=== PATIENT | male | born 1950 | race Caucasian/White ===

== ENCOUNTER 2016-11-11 12:21 | Inpatient (IN) ==
[2016-11-11 13:10] LABS: Basophils % 0.3 %; Eosinophils % 0.4 %; Hematocrit 41.5 % (37.5-50.1); Hemoglobin 14.6 g/dL (12.9-16.9); Immature Granulocytes % 0.3 % (0-4); Immature Platelets 5.2 % (1.1-6.1); Lymphocytes # 1.8 K/mcL (0.6-4.6); Lymphocytes % 25.3 %; Mean Corpuscular HGB Conc 35.2 g/dL (31.6-35.5); Mean Corpuscular Hemoglobin 31.1 pg (28.0-33.3); Mean Corpuscular Volume 88.5 fL (83.0-100.0); Mean Platelet Volume 10.9 fL (9.4-12.4); Monocytes # 0.5 K/mcL (0.0-1.3); Monocytes % 6.4 %; Neutrophils # 4.8 K/mcL (1.6-8.9); Platelet Count 169 K/mcL (140-400); Red Blood Count 4.69 M/mcL (4.19-5.50); Red Cell Distribution Width 12.2 % (11.5-14.5); Segmented Neutrophils % 67.3 %
--- NOTE | 2016-11-11 13:14 | Emergency Department Note ---
Disposition Clinical Impression: NSTEMI (non-ST elevated myocardial infarction) Disposition: Admitted As Inpatient Condition: Fair Referrals: Milena Pederson CNP [Primary Care Provider] - Forms: ED Satisfaction Letter Chest Pain HPI - General Chief Complaint: ED Chest Pain Stated Complaint: Chest Pain Time Seen by Provider: 11/11/16 12:31 Source: patient Limitations: no limitations Vital Signs Reviewed: Yes Nursing Notes Reviewed: Yes - History of Present Illness HPI Narrative: 66-year-old male with history of coronary artery disease, triple-vessel CAB presents with intermittent chest pain for the last week. Chest pain is located on the left side radiates to left shoulder and jaw, 3/10, worsens with exertion , food, is not relieved by nitroglycerin. pain resolves with rest, passing of flatus and burping. EKG shows sinus rhythm with right bundle branch block. denies nausea, vomiting, diaphoresis, dizziness, syncope. Reports he takes aspirin, statin, plavix daily and has taken his dose this morning. Severity scale (1-10): 0 - Related Data Home Medications Medication Instructions Recorded Confirmed Cyanocobalamin (Vitamin B-12) 1,000 mcg SL DAILY 12/27/15 12/27/15 [Vitamin B-12] Atorvastatin [Lipitor] 40 mg PO HS 01/21/16 01/21/16 Clopidogrel [Plavix] 75 mg PO DAILY 01/21/16 01/21/16 Melatonin/Pyridoxine [Melatonin 3 01/21/16 mg Tablet] Potassium Chloride [K-Tab ER] 20 meq PO 01/21/16 Previous Rx's Medication Instructions Recorded Aspirin 81 mg PO DAILY tab.chew 12/28/15 Atorvastatin [Lipitor] 80 mg PO HS tablet 12/28/15 Metoprolol XL (24 HR) Succ [Toprol 25 mg PO DAILY tab.er.24h 12/28/15 Xl] Allergies Allergy/AdvReac Type Severity Reaction Status Date / Time No Known Allergies Allergy Verified 01/21/16 19:23 Review of Systems: Constitutional: Denies fever, chills HEENT: Denies blurry vision, sinus congestion Heart: Chest pain, denies palpitations. Lungs: Denies sob, cough, productive sputum Abdomen: Denies nausea vomiting, abdominal pain Extremities: denies swelling, pain Neuro: denies headache, numbness, tingling, confusion Chest Pain PMH - Past Medical History Medical history: Reports: coronary artery disease, diabetes, hyperlipidemia, hypertension, myocardial infarction Surgical history: Reports: coronary bypass (CABG) ([facility], 3 vessels, 2 weeks ago) , herniorrhaphy (left inguinal), orthopedic, other (left fifth digit ORIF) Psychiatric history: Reports: no psych history - Social History Smoking Status: Never smoker Alcohol use: Reports: occasionally Drug use: Reports: none Physical Exam Head exam: atraumatic, normocephalic Eye exam: Present: normal appearance, PERRL, EOMI ENT exam: normal exam, normal oropharynx, mucous membranes moist Neck exam: Present: normal inspection, full ROM Chest inspection: Present: normal inspection, symmetric chest wall rise Respiratory exam: Present: normal lung sounds bilaterally, respiratory distress Cardiovascular exam: Present: regular rate, normal rhythm Abdominal exam: Present: soft, Non-Tender, normal bowel sounds Extremities exam: Present: normal inspection, full ROM, normal capillary refill. Absent: tenderness, pedal edema Neurological exam: Present: alert, oriented X3 - General Limitations: no limitations General appearance: alert, in no apparent distress Course - Reevaluation(s) Reevaluation #1: 66 y/o male presenting with CP. initial troponin 0.10. EKG sinus rhythm with right bundle branch block. Normal CBC and BMP. Patient has NSTEMI will start Heparin and admit. Time: 13:42 Vital Signs Temperature 98.1 F 11/11/16 12:26 Pulse Rate 80 11/11/16 12:26 Respiratory Rate 18 11/11/16 12:26 Blood Pressure 152/99 11/11/16 12:26 O2 Sat by Pulse Oximetry 100 11/11/16 12:26 Temperature 98.1 F 11/11/16 12:26 Pulse Rate 68 11/11/16 13:29 Respiratory Rate 18 11/11/16 13:29 Blood Pressure 149/93 11/11/16 13:29 O2 Sat by Pulse Oximetry 100 11/11/16 13:29 Oxygen Delivery Oxygen Delivery Room Air Chest Pain - Lab Data Result diagrams: 11/11/16 13:04 11/11/16 13:04 Lab Results 11/11/16 11/11/16 11/11/16 Range/Units 13:04 13:04 13:04 WBC 7.1 (4.3-11.1) K/mcL RBC 4.69 (4.19-5.50) M/mcL Hgb 14.6 (12.9-16.9) g/dL Hct 41.5 (37.5-50.1) % MCV 88.5 (83.0-100.0) fL MCH 31.1 (28.0-33.3) pg MCHC 35.2 (31.6-35.5) g/dL RDW 12.2 (11.5-14.5) % Plt Count 169 (140-400) K/mcL MPV 10.9 (9.4-12.4) fL Immature Gran % 0.3 (0-4) % Seg Neutrophils % 67.3 % Lymphocytes % 25.3 % Monocytes % 6.4 % Eosinophils % 0.4 % Basophils % 0.3 % Neutrophils # 4.8 (1.6-8.9) K/mcL Lymphocytes # 1.8 (0.6-4.6) K/mcL Monocytes # 0.5 (0.0-1.3) K/mcL Eosinophils # 0.0 (0.0-0.6) K/mcL Basophils # 0.0 (0.0-0.2) K/mcL Immature Plt Fraction 5.2 (1.1-6.1) % PT 12.5 H (9.4-12.1) Seconds INR 1.2 APTT 30.3 (26.0-36.0) Seconds Sodium (136-145) mEq/L Potassium (3.5-4.5) mEq/L Chloride (98-109) mEq/L Carbon Dioxide (19-29) mEq/L BUN (8-26) mg/dL Creatinine (0.72-1.25) mg/dL Est GFR ( Amer) (> 60) Est GFR (Non-Af Amer) (> 60) BUN/Creatinine Ratio (6-26) Glucose (70-99) mg/dL Calculated Osmolality (280-300) Calcium (8.6-10.8) mg/dL Troponin I (0-0.03) ng/mL B-Natriuretic Peptide 188 H (0-100) pg/mL 11/11/16 11/11/16 Range/Units 13:04 13:04 WBC (4.3-11.1) K/mcL RBC (4.19-5.50) M/mcL Hgb (12.9-16.9) g/dL Hct (37.5-50.1) % MCV (83.0-100.0) fL MCH (28.0-33.3) pg MCHC (31.6-35.5) g/dL RDW (11.5-14.5) % Plt Count (140-400) K/mcL MPV (9.4-12.4) fL Immature Gran % (0-4) % Seg Neutrophils % % Lymphocytes % % Monocytes % % Eosinophils % % Basophils % % Neutrophils # (1.6-8.9) K/mcL Lymphocytes # (0.6-4.6) K/mcL Monocytes # (0.0-1.3) K/mcL Eosinophils # (0.0-0.6) K/mcL Basophils # (0.0-0.2) K/mcL Immature Plt Fraction (1.1-6.1) % PT (9.4-12.1) Seconds INR APTT (26.0-36.0) Seconds Sodium 138 (136-145) mEq/L Potassium 4.6 H (3.5-4.5) mEq/L Chloride 105 (98-109) mEq/L Carbon Dioxide 29 (19-29) mEq/L BUN 16 (8-26) mg/dL Creatinine 0.88 (0.72-1.25) mg/dL Est GFR ( Amer) > 60 (> 60) Est GFR (Non-Af Amer) > 60 (> 60) BUN/Creatinine Ratio 18 (6-26) Glucose 90 (70-99) mg/dL Calculated Osmolality 287 (280-300) Calcium 9.0 (8.6-10.8) mg/dL Troponin I 0.10 H* (0-0.03) ng/mL B-Natriuretic Peptide (0-100) pg/mL - EKG Data EKG results narrative: Sinus rhythm with RBBB, without ST-Twave changes. Interpretation: no acute changes
[2016-11-11 13:16] LABS: INR 1.2; Prothrombin Time 12.5 Seconds (9.4-12.1)
--- NOTE | 2016-11-11 13:17 | Emergency Department Note ---
START Narrative - START START: I examined this patient and my medical decision-making was reviewed with the VP RESEARCH/PA/Advanced Practice Nurse/Resident Physician. I agree with the documented findings, disposition and treatment plan as described except to the extent set forth below. I did feel spoke with the patient and he does have chest pain which is intermittent lasting from several seconds to several minutes at a time radiating to the left jaw and left arm. I did review the previous record and the patient did have a CABG last year. He does see Dr. Akins for cardiology. Workup in progress. I did review the patient's EKG showing normal sinus rhythm with a rate of 64 without acute ischemic change [id number]
[2016-11-11 13:19] LABS: Activated Partial Thrombo Time 30.3 Seconds (26.0-36.0)
[2016-11-11 13:22] LABS: BUN/Creatinine Ratio 18 (6-26); Blood Urea Nitrogen 16 mg/dL (8-26); Carbon Dioxide 29 mEq/L (19-29); Chloride 105 mEq/L (98-109); Glucose 90 mg/dL (70-99); Osmolality,Calculated 287 (280-300); Potassium 4.6 mEq/L (3.5-4.5); Sodium 138 mEq/L (136-145); eGFR For African Americans > 60 (> 60); eGFR For Non-African Americans > 60 (> 60)
[2016-11-11] MEDS ORDERED: Heparin 25,000 UNIT/500 ML D5W 25,000 UNIT/500 ML MLS IVC SCH (13:45)
[2016-11-11] MEDS ORDERED: *HR* Heparin 5,000 UNIT/ML VIAL IVP PRN ×2 (13:45)
[2016-11-11] MEDS ORDERED: *HR* Heparin 5,000 UNIT/ML VIAL IVP ONE (13:45)
[2016-11-11] MEDS ORDERED: Nitroglycerin 0.4 MG TAB.SUBL SL PRN (17:54)
[2016-11-11] MEDS ORDERED: Naloxone 0.4 MG/ML INJ IVP PRN (17:55)
[2016-11-11] MEDS ORDERED: Ondansetron 4 MG/2 ML VIAL IVP PRN (17:55)
--- NOTE | 2016-11-11 17:59 | Internal Med History&Physical ---
Date of Encounter: 11/11/16 Time of Encounter: 17:40 Assessment and Plan (1) Chest pain Current visit: Yes Status: Acute Patient with significant CAD hx s/p CABG last year for a multivessel disease afer e had presented with NSTEMI, peak tropinin at the time was 12+ his cath reported; LMCA free of disease, LAD, 40% proximal disease, 90% mid LAD disease, Circumflex had 100% stenosis of the mid part, and 80% stenosis of the proximal first marginal, for the RCA he had 40% stenosis of proximal portion, 75 % stenosis of the middle portion and 70% stenosis of the middle portion of the PDA, unfortunately we do not know the anatomy of his bypass surgery but he reports that one of the blockages was left alone(will need records from [facility]) due to his extensive coronary artery disease he will benefit from a cardiology evaluation as regards to repeat cath vs medical management, for now we will start him on imdur ending cardiology evaluation, we will continue to cycle troponin, telemonitor and continue his cardiac medications Qualifiers: Chest pain type: intercostal pain Qualified Code(s): R07.82 - Intercostal pain (2) HTN (hypertension) Current visit: Yes Status: Chronic Hx of HTN on antihypertensives, we will continue his prior medications with the addition of imdur per chest pain section Qualifiers: Hypertension type: essential hypertension Qualified Code(s): I10 - Essential (primary) hypertension (3) Hyperkalemia Current visit: Yes Status: Acute may be from cellular shifts, we will follow BMP (4) CAD in [place] artery Current visit: Yes Status: Chronic pls refer to the chest pain section (5) Elevated troponin Current visit: Yes Status: Acute this may be related to demand ischemia vs NSTEMI, he has no chest pain currently and the degree elevation is incomparable to his prior elevation, should his troponin continue to trend up we will consider initiating the ACS protocol (6) Hyperglycemia Current visit: Yes Status: Acute he has no prior diagnosis of DM, this hyperglycemia may be stress related, we will however check A1c Internal Medicine - H&P: HPI Chief complaint: Chest pain Admitted From: Emergency Dept Plans for Post Hospital Care: Home History of present illness: Mr. Colon is a 66 year old male with a history of multivessel coronary artery disease s/p CABG in 12/2015 at [facility] as a transfer from here. He was in his usual state of health until he went on a treadmill about a week and a half ago when used the incline option. Whilst on the treadmill he began to experience achy/ pressure like/crampy left sided chest pain, radiated to the left jaw and arm and lasted a few seconds. The pain abated after he got off the treadmill, since then he has had stuttering chest pain with same characteristic that sometimes does not respond to nitro. The pain sometimes comes on at rest, exertion worsens it. He has been getting this pain several times a week since the first episode. He denies any associated diaphoresis, shortness of breath, palpitations , nausea or vomiting, lightheadedness with any of the episodes. He came in today because he had it about 2 times; one in the morning and later this afternoon. In the ER his EKG was unchanged but his troponin level was slightly elevated at 0.1. Past Med Surg Social Fam HX - Past Medical History Medical history: coronary artery disease, hyperlipidemia, hypertension, myocardial infarction Psychiatric history: no psych history - Past Surgical History Surgical History: coronary bypass (CABG) (12/2015), herniorrhaphy, orthopedic, other - Social History Smoking Status: Never smoker Smokeless Tobacco Status: No Alcohol use: occasionally Drug use: none - Family History Brother Adopted: No Living Status: Still Living Hx Family Cardiac Disorders: Yes Hx Family Respiratory Disorders: No Hx Family Cancer: No Hx Family GI Disorders: No Hx Family Endocrine Disorder: No Hx Family Neuromuscular Disorders: No Hx Family Neurologic Disorders: No Hx Family HEENT Disorders: No Hx Family Autoimmune Disorders: No - Additional Family History Additional family history: brother was diagnosed with CAD s/p CABG in his 40's Internal Medicine - H&P: Meds Cyanocobalamin (Vitamin B-12) [Vitamin B-12] 1,000 mcg SL DAILY 12/27/15 [ History] Aspirin 81 mg PO DAILY tab.chew 12/28/15 [Rx] Atorvastatin [Lipitor] 40 mg PO HS 01/21/16 [History] Clopidogrel [Plavix] 75 mg PO DAILY 01/21/16 [History] Melatonin 3 mg PO HS 11/11/16 [History] Metoprolol [Lopressor] 25 mg PO BID 11/11/16 [History] Multivitamin [Multi-Day Vitamins] 1 tab PO DAILY 11/11/16 [History] Niacin [Niacor] 500 mg PO DAILY 11/11/16 [History] Nitroglycerin [Nitrostat] 0.4 mg SL AD PRN 11/11/16 [History] Allergies No Known Allergies Allergy (Verified 01/21/16 19:23) All Systems PM: A 10-system review of systems was performed and is negative for pertinent findings except as documented above in the HPI. - Constitutional Constitutional: no chills, no fever(s), no night sweats - EENT Eyes: no change in vision, no discharge, no pain, no photophobia Ears: no ear discharge, no ear pain, no tinnitus Nose, mouth and throat: no dysphagia, no nasal discharge, no neck pain, no sore throat - Cardiovascular Cardiovascular ROS IM: chest pain, no diaphoresis, no dyspnea, no lightheadedness, no palpitations, no syncope - Respiratory Respiratory: no cough, no dyspnea, no wheezing, no excessive phlegm production - Gastrointestinal Gastrointestinal: no abdominal pain, no diarrhea, no hematemesis, no hematochezia, no melena, no nausea, no vomiting - Genitourinary Genitourinary ROS male: no difficulty urinating, no nocturia, no urinary frequency - Musculoskeletal Musculoskeletal ROS IM: no numbness, no tingling - Integumentary Integumentary IM: no rash, no unusual bruising - Neurological Neurological ROS: no confusion, no convulsions, no focal weakness, no numbness, no tingling, no tremor(s) - Psychiatric Psychiatric: anxiety, no difficulty concentrating, no suicidal ideation - Endocrine Endocrine IM: no cold intolerance, no polyphagia - Hematologic/Lymphatic Hematologic/Lymphatic: no easy bruising - Allergic/Immunologic Allergic/Immunologic: no tongue swelling, no throat swelling, no wheezing - Constitutional Vitals: Temp Pulse Resp BP Pulse Ox 97.3 F L 64 17 133/83 98 11/11/16 16:19 11/11/16 16:19 11/11/16 16:19 11/11/16 16:19 11/11/16 16:19 PHYSICAL EXAMINATION: GENERAL: Adult male, lying in bed with no sign of distress, Alert, HEENT: NC/AT, EOMI, PERRLA, anicteric sclera, normal conjunctiva, supple, clear nares, moist mucous membranes, clear oropharynx, central uvula RESP: no chest wall tenderness with palpation, lungs are clear to auscultation bilaterally, good AE bilaterally, No crackles or wheeze CARDIO: Normal hearts sounds; S1 and 2, RRR with no murmurs, no JVD, no ankle edema GI: Soft, full, no tenderness, no organomegaly felt, normal bowel sounds heard MUSCULOSKELETAL: grossly normal movements bilaterally, no deformities noted, no calf tenderness EXTREMITIES: No clubbing, cyanosis or edema, NEUROLOGIC: CN 2-12 intact grossly. No motor/sensory deficit appreciated, PSYCHIATRY: AAO x 3. Mood is fair, exhibits appropriate judgement SKIN: no skin rash or ulcers noted Internal Med - H&P Results - Labs CBC & Chem 7: 11/11/16 13:04 11/12/16 00:40 - EKG Data -: EKG Interpreted by Myself EKG shows normal: sinus rhythm - EKG Data Prior EKG available for review: yes When compared to previous EKG: there is no significant change - Diagnostic Studies Chest x-ray Status: image reviewed by me
[2016-11-11] MEDS ORDERED: *HR* LORazepam 0.5 MG TABLET PO ONE (21:00)
[2016-11-11] MEDS: Isosorbide MONOnitrate (24 HR) 30 MG TAB.ER.24H PO SCH (21:38)
[2016-11-11] MEDS: Melatonin 3 MG TABLET PO SCH (21:38)
[2016-11-12 01:02] LABS: Hemoglobin A1C 5.6 %
[2016-11-12 01:17] LABS: BUN/Creatinine Ratio 15 (6-26); Blood Urea Nitrogen 14 mg/dL (8-26); Carbon Dioxide 30 mEq/L (19-29); Chloride 105 mEq/L (98-109); Potassium 3.9 mEq/L (3.5-4.5); Sodium 139 mEq/L (136-145)
[2016-11-12 01:18] LABS: Calcium 8.6 mg/dL (8.6-10.8); Chol/HDL Ratio 3.3 (0-4.9); Glucose 114 mg/dL (70-99); HDL Cholesterol 22 mg/dL (40-59); LDL Cholesterol,Calculated 28 mg/dL (0-99); Osmolality,Calculated 289 (280-300); Phosphorous 3.8 mg/dL (2.3-4.7); Triglycerides 114 mg/dL (< 150); eGFR For African Americans > 60 (> 60); eGFR For Non-African Americans > 60 (> 60)
[2016-11-12 01:19] LABS: Cholesterol 73 mg/dL (< 200)
[2016-11-12] MEDS: *HR* Heparin 5,000 UNIT/ML VIAL SQ SCH ×3 (06:00→21:10)
--- NOTE | 2016-11-12 08:40 | Pre-Sedation Evaluation ---
Pre-sedation evaluation - Pre-sedation checklist Date of procedure: 11/12/16 Procedure: heart cath Recent Vitals: Last Vital Signs Temp 97.7 F 11/12/16 07:18 Pulse 78 11/12/16 07:18 Resp 16 11/12/16 07:18 BP 100/64 11/12/16 07:18 Pulse Ox 96 11/12/16 07:18 H&P (including ROS) documented in medical record: Yes Previous reaction to sedatives/anesthetics: No Dietary Status: No solid food in preceding 4 hrs and no liquid in preceding 2 hrs ASA Classification *see protocol: CLASS II-Mild systemic disease Plan of Care: Pt appropriate candidate for procedure/moderate/conscious sedation , Risks/benefits of procedure/sedation discussed w/ patient/family
[2016-11-12] MEDS: Multivit/Ca/Min/Fe/FA 1 TAB TABLET PO SCH (09:43)
[2016-11-12] MEDS: Cyanocobalamin (B-12) 1,000 MCG TABLET PO SCH (09:43)
[2016-11-12] MEDS: Aspirin 81 MG TAB.CHEW PO SCH (09:43)
[2016-11-12] MEDS: Isosorbide MONOnitrate (24 HR) 30 MG TAB.ER.24H PO SCH (09:43)
[2016-11-12] MEDS: Niacin (24 HR) 500 MG TAB.ER.24H PO SCH (09:43)
--- NOTE | 2016-11-12 09:50 | Electrocardiograph Report ---
[place] [id number] Test Date: 2016-11-11 Pat Name: Tim Colon Department: 103 Room: 3B37 Gender: M [employer]: CHARLY : 1950 Requested By: Socrates Jean Order Number: [id number] Reading MD: Brandyn Sagastume MD Measurements Intervals [place] Rate: 64 P: 73 TX: 176 QRS: -19 QRSD: 116 T: 45 QT: 420 QTc: 429 Interpretive Statements SINUS RHYTHM WITH SINUS ARRHYTHMIA INCOMPLETE RIGHT BUNDLE BRANCH BLOCK Electronically Signed On 11-12-2016 9:49:11 EDT by Brandyn Sagastume MD
--- NOTE | 2016-11-12 10:07 | Cardiology Consult Note ---
Date of Encounter: 11/12/16 Time of Encounter: 08:30 Assessment and Plan (1) NSTEMI (non-ST elevated myocardial infarction) Current Visit: Yes Status: Acute Per cardiology: -Known history of CAD s/p CABG December 2015. -CHest pain on excertion for 2 weeks. -Troponins 0.1, 0.29, 0.31, 0.23. -ECG with SR. -Currently chest pain free. -On asa, plavix, heparin 5000 units subq q8 hours, beta blokcer, and statin. -LHC today. Risk and benefits of LHC explained to patient and family. Patient and family state understanding and agreeable to proceed with LHC. -Further recommendations pending LHC. (ELA) (2) Chest pain Current Visit: Yes Status: Acute Per cardiology: -Chest pain with excertion for 2 weeks. -KNown history of CAD, status post CABG 2015. -CUrrently chest pain free -On imdur. -Troponins elevated. -PLan for LHC today. (ELA) Qualifiers: Chest pain type: intercostal pain Qualified Code(s): R07.82 - Intercostal pain (3) History of coronary artery disease Current Visit: Yes Status: Chronic Per cardiology: -KNown history of CAD. -LHC 12/28/15 with 40% proximal LAD, 90% mid LAD, 100% mid circumfolex, 80% proximal OM1, 40% proximal RCA, 75% mid RCA, 70% PDA> -CABG December 2015 with 3 bypassess. Per review of 's office note, ACEVES to LAD, SVG to RCA, SVG to diagonal. -On asa, plavix, statin, beta anival, and imdur. -PLan for LHC today. (4) HTN (hypertension) Current Visit: Yes Status: Chronic Per cardiology: -Known history fo HTN. -BP on admission 150/90. Currently 100/60. -On beta anival. -WIll continue to monitor. (ELA) Qualifiers: Hypertension type: essential hypertension Qualified Code(s): I10 - Essential (primary) hypertension Discussion w patient/family: The assessment and plan as outlined above was discussed with the patient and/or family members who expressed understanding and agreement. All questions were answered. Thank you for involving us in the care of your patient. Please call with any questions. Patient seen and examined with SHANELL Colon DIscussed and reviewed with . History of Present Illness Consult date: 11/11/16 Requesting physician: Oscar Irving Consult reason: CAD, S/P CABG Chief complaint: chest pain History of present illness: Mr. Colon is a 66 year old male with a relevant past medical history of CAD, status post CABG December 2015, HTN, Hyperlipidemia, NSTEMI. Patient was admitted to [facility] with left sided chest pain for the past two weeks. Patient states when he excercises on treadmill, he has left chest pain that radiates to left shoulder and left neck. Patient also admits to chest pain when working and walking at home. Pateint describes chest pain as a dull, aching sensation. Patient states at its worse, pain would be rated a 2/10. Patient denies shortness of breath. Patient admits to increased fatigue. Patient denies current chest pain. (ELA) Past Med Surg Social Fam HX - Past Medical History Attestation: Yes The following information was validated with the patient. Source: patient, old records reviewed, obtained from family Medical history: coronary artery disease, hyperlipidemia, hypertension, myocardial infarction Psychiatric history: no psych history - Past Surgical History Surgical History: coronary bypass (CABG) (12/2015), herniorrhaphy, orthopedic, other - Social History Smoking Status: Never smoker Smokeless Tobacco Status: No Alcohol use: occasionally Drug use: none - Family History Brother Adopted: No Living Status: Still Living Hx Family Cardiac Disorders: Yes Hx Family Respiratory Disorders: No Hx Family Cancer: No Hx Family GI Disorders: No Hx Family Endocrine Disorder: No Hx Family Neuromuscular Disorders: No Hx Family Neurologic Disorders: No Hx Family HEENT Disorders: No Hx Family Autoimmune Disorders: No Medications and Allergies Cyanocobalamin (Vitamin B-12) [Vitamin B-12] 1,000 mcg SL DAILY 12/27/15 [ History] Aspirin 81 mg PO DAILY tab.chew 12/28/15 [Rx] Atorvastatin [Lipitor] 40 mg PO HS 01/21/16 [History] Clopidogrel [Plavix] 75 mg PO DAILY 01/21/16 [History] Melatonin 3 mg PO HS 11/11/16 [History] Metoprolol [Lopressor] 25 mg PO BID 11/11/16 [History] Multivitamin [Multi-Day Vitamins] 1 tab PO DAILY 11/11/16 [History] Niacin [Niacor] 500 mg PO DAILY 11/11/16 [History] Nitroglycerin [Nitrostat] 0.4 mg SL AD PRN 11/11/16 [History] Allergies No Known Allergies Allergy (Verified 01/21/16 19:23) All Systems Review: A 10-system review of systems was performed and is negative for pertinent findings except as documented above in the HPI. - Constitutional Constitutional: fatigue - Cardiovascular Cardiovascular: as per HPI, chest pain with exertion Physical Examination Vital Signs, Last 4 Hours Temp Pulse Resp BP Pulse Ox 11/12/16 07:18 97.7 F 78 16 100/64 96 General: Conversant, No Apparent Distress HEENT: Atraumatic, Normocephaly, Mucus Membranes Moist Neck: No JVD, Normal carotid pulses Cardiac: Reg Rate and Rhythm, Normal S1 and S2, No Murmur Lungs: Normal Breath Sounds, No Wheeze, Rales, Rhonchi Neuro: Alert and responsive, No focal deficits noted Abdomen: Soft, Non-Tender Skin: No rashes noted on visualized skin Musculoskeletal: No Chest Wall Tenderness Extremities: No Clubbing, No Cyanosis, No Edema, Normal Pulses Results 11/11/16 13:04 11/12/16 00:40 Lab Results Impressions Chest X-Ray 11/11/16 12:50 IMPRESSION: 1. Left base atelectasis with mild elevation of the left hemidiaphragm. Otherwise unremarkable chest radiograph. D/ / Fly Kan MD / Fly Kan MD Interpreting Provider: Fly Kan MD Active Medications Aspirin (Aspirin) 81 mg PO DAILY ADRIAN Stop: 05/14/17 09:01 Last Admin: 11/12/16 09:43 Dose: 81 mg Clopidogrel Bisulfate (Plavix) 75 mg PO DAILY ADRIAN Stop: 05/14/17 09:01 Last Admin: 11/12/16 09:43 Dose: 75 mg Cyanocobalamin (Vitamin B12) 1,000 mcg PO DAILY ADRIAN Stop: 05/14/17 09:01 Last Admin: 11/12/16 09:43 Dose: 1,000 mcg Heparin Sodium (Porcine) (Heparin) 5,000 unit SQ Q8HCO [facility] Stop: 05/14/17 06:01 Last Admin: 11/12/16 06:00 Dose: 5,000 unit Isosorbide Mononitrate (Imdur) 30 mg PO DAILY [facility] Stop: 05/13/17 18:01 Last Admin: 11/12/16 09:43 Dose: 30 mg Melatonin (Melatonin) 3 mg PO HS [facility] Stop: 05/13/17 21:01 Last Admin: 11/11/16 21:38 Dose: 3 mg Metoprolol Tartrate (Lopressor) 25 mg PO BID [facility] Stop: 05/13/17 21:01 Last Admin: 11/12/16 09:43 Dose: 25 mg Multivitamins/Calcium (Thera M Plus) 1 tab PO DAILY [facility] Stop: 05/14/17 09:01 Last Admin: 11/12/16 09:43 Dose: 1 tab Naloxone HCl (Narcan) 0.4 mg IVP Q2MIN PRN PRN Reason: Opioid Reversal Stop: 05/13/17 17:56 Niacin (Niaspan) 500 mg PO DAILY [facility] Stop: 05/14/17 09:01 Last Admin: 11/12/16 09:43 Dose: 500 mg Nitroglycerin (Nitroglycerin) 0.4 mg SL AD PRN PRN Reason: Chest Pain Stop: 05/13/17 17:55 Ondansetron HCl (Zofran) 4 mg IVP Q6HR PRN PRN Reason: Nausea And Vomiting Stop: 05/13/17 17:56 Simvastatin (Zocor) 40 mg PO HS [facility] Stop: 05/13/17 21:01 Last Admin: 11/11/16 21:38 Dose: 40 mg Laboratory Tests 11/11/16 11/11/16 11/11/16 13:04 13:04 13:04 Hgb 14.6 Creatinine Est GFR (Non-Af Amer) Troponin I 0.10 H* B-Natriuretic Peptide 188 H 11/11/16 11/12/16 11/12/16 18:33 00:40 00:40 Hgb Creatinine 0.94 Est GFR (Non-Af Amer) > 60 Troponin I 0.29 H* 0.31 H* B-Natriuretic Peptide 11/12/16 06:33 Hgb Creatinine Est GFR (Non-Af Amer) Troponin I 0.23 H* B-Natriuretic Peptide - Imaging and Cardiology Chest Xray: report reviewed Echo: report reviewed Cardiac cath: report reviewed - EKG Interpretation EKG results cardiology: personally reviewed (ECG with Sinus rhythm, HR 67.), other (Telemetry reviewed with average HR 63. Minimum HR 49 noted at 0448. PACs noted.) Consult Discharge Plan - Plan Referrals: Milena Pederson, [facility]LLER [Primary Care Provider] -
--- NOTE | 2016-11-12 11:32 | ECHO - Doppler Report ---
Echocardiogram Name: Tim Colon Date of Study: 11/11/2016 Date: 1950 Ht: 71.0 in Medical Record#: [id number] Age: 66 Wt: 195.0 lb Gender: Male BSA: 2.09 Order #: [id number] Location: [facility] Room #: 3B Reading Physician: Ozzie Akins DO, FACCamila, ROGER Supervisor [place]chard: Kimberly Puga RDCS Ordering Physician: Oscar Irving MD Primary Physician: Milena Pederson CNP Indications: WMA Impressions: LVEF 50-55%. Normal LV chamber size, wall thickness and function. Mild left ventricular diastolic dysfunction. Normal right ventricular structure and function. No evidence of pulmonary hypertension. Atypical septal motion consistent with post-operative status. No significant valvular dysfunction. Compared to prior report, no changes in LV function. Left Ventricular Wall Motion: Rest Echo Findings All wall segments showed normal motion. Findings: Study Quality * Technically sub-optimal due to poor echocardiographic windows. ECG Findings * Normal sinus rhythm. Left Ventricle * LVEF 50-55%. * Normal LV chamber size, wall thickness and function. * Mild left ventricular diastolic dysfunction. * Atypical septal motion consistent with post-operative status. Right Ventricle * Normal right ventricular structure and function. Left Atrium * Normal left atrial size. Right Atrium * Normal right atrial size. Interatrial Septum * Interatrial septum not well evaluated. Aortic Valve * Trileaflet aortic valve. * Mildly sclerotic aortic valve leaflets. * No aortic regurgitation. * No aortic stenosis. Mitral Valve * Normal mitral valve structure and function. * No mitral stenosis. * Trace mitral regurgitation. Tricuspid Valve * Normal tricuspid valve structure and function. * Trace tricuspid regurgitation. * No evidence of pulmonary hypertension. Pulmonic Valve * Normal pulmonic valve structure and function. * No pulmonic regurgitation. Aorta * Normally sized aortic root. Pericardium * The pericardium appears normal. IVC * Normal IVC dimensions and inspiratory collapse. Pulmonary Artery * Normal visualized portions of the main pulmonary artery. History Hypertension Hypercholesteremia History of CAD/PTCA Myocardial Infarction Coronary Artery Bypass Graft 12/28/2015 a Previous Echo was performed. Measurements: BP: 133/ 83 2D Normal Values RVIDd: 2.82 cm <2.7 cm IVSd: .90 cm 0.6 - 1.0 cm LVIDd: 4.49 cm 3.7 - 5.6 cm LVPWd: 1.04 cm 0.6 - 1.1 cm LVIDs: 2.81 cm 1.5 - 3.6 cm AO: 3.00 cm < 4.0 cm LA: 3.80 cm 2.0 - 4.0cm %FS: 37.40 cm >25 % LA volume: 30 Mitral Valve Peak E:.63 m/sec Peak A:.77 m/sec E/A Ratio:0.8 Peak E' Lat Best:12.8 cm/s Peak E' Med Best:6.96 cm/s E/E' Lat Ratio:4.9 E/E' Med Ratio:9 Tricuspid Valve TV Regurg Peak Grad: 24.00mmHg TV Regurg Peak Best: 2.44m/sec Updated by Ozzie Aknis DO, FACCamila, NEDA DURAN on 11/12/2016 11:28:35 AM electronically signed on 11/12/2016 11:29:00 AM with status of Final Wall Motion Tariq: 1=Normal, 2=Hypokinesis, 3=Akinesis, 4=Dyskinesis, 5=Aneurysmal, 6=Hyperkinetic, X=Not Visualized (Blank)=Missing
[2016-11-12] MEDS ORDERED: Heparin 1,000 UNITS/500 mL NS 500 ML ONE (12:10)
[2016-11-12] MEDS ORDERED: *HR* Heparin 10,000 UNIT/10 ML VIAL ONE ×2 (12:10→15:03)
[2016-11-12] MEDS ORDERED: Verapamil 5 MG/2 ML VIAL ONE (12:11)
[2016-11-12] MEDS ORDERED: Nitroglycerin 1,000 MCG/10 ML VIAL IV ONE (12:11)
[2016-11-12] MEDS ORDERED: *HR* FentaNYL (PF) 100 MCG/2 ML VIAL ONE ×2 (13:34→14:19)
[2016-11-12] MEDS ORDERED: *HR* Midazolam HCl 5 MG/5 ML VIAL IVP ONE (13:34)
[2016-11-12] MEDS ORDERED: 0.9 % Sodium Chloride 1,000 ML ONE ×2 (13:36→18:49)
[2016-11-12] MEDS ORDERED: Tirofiban 12.5 MG/250ML 12.5 MG/250 ML BAG ONE (14:30)
[2016-11-12] MEDS ORDERED: *HR* Ticagrelor 90 MG TABLET ONE (14:53)
[2016-11-12] MEDS ORDERED: Tirofiban 12.5 MG/250ML 12.5 MG/250 ML BAG IVC SCH (15:15)
--- NOTE | 2016-11-12 15:34 | Invasive Diagnostic Lab Proc ---
Name: Tim Colon Date of Study: 11/12/2016 Date: 1950 Ht: 70.0in Medical Record#: [id number] Age: 66 Wt: 196.43lb Gender: Male BSA: 2.07 Order #: [id number] BMI: 28.18 Physicians Procedure Physician: Ankit Hernandez MD, [facility] Referring MD: Referring MD: Staff Name Position Time In Tara Beebe RT (R) Scrub 01:33 PM Cresencio Whitehead RN Preschool Teacher Assistant 01:33 PM Fiona Potts RN Monitor 01:33 PM Indications Indication Non-Stemi Procedures Performed Procedure L HRT ART/GRFT ANGIO PRQ CARD MAYELA STENT W/ANGIO 1 VSL PRQ CARD MAYELA STENT W/ANGIO 1 VSL Pre-Procedure Checklist Informed consent is complete signed and on chart. H\\T\\P is on chart. ID band is on and ID verified with patient. Patient NPO for procedure The procedure was described for the patient and questions were answered. Blood Pressure: 100/64 ECG is on chart. Rhythm: NSR Plan of Care Patient will tolerate the procedure without complications. Adequate level of comfort will be maintained. Hemodynamics will remain stable Patient will recover from procedure without complications. Respiratory function will be maintained. Cardiac rhythm will remain stable. Patient temperature will be maintained. Patient and/or family have verbalized understanding of the procedure. Patient Education Chief Complaint/Reason for Test: Cardiac Cath Developmental Category: Adult (18-64 years) Developmentally Appropriate for Age: Yes Learning Barriers: None Education Needs: Procedure Education Method: Verbal Information Taught: Cardiac Cath Educational Evaluation: Able to repeat information Intravenous Access Time IV Size Location DC'd Fluid/Drip Rate Units RN 20g 1 /" Patent On Arrival Lt Arm 0.9NaCl 25 ml/hr Cresencio Whitheead RN Allergies No Known Allergies Vital Signs Time BP (mmHg) HR (bpm) O2 Sat. RR (bpm) LOC 100 / 64 78 96 % 16 5 = Fully awake and oriented or at pre-proc level 01:52 PM / % 5 = Fully awake and oriented or at pre-proc level 01:52 PM / % 5 = Fully awake and oriented or at pre-proc level 02:07 PM / % 5 = Fully awake and oriented or at pre-proc level 02:23 PM / % 5 = Fully awake and oriented or at pre-proc level 02:37 PM / % 5 = Fully awake and oriented or at pre-proc level 02:52 PM / % 5 = Fully awake and oriented or at pre-proc level 01:37 PM 115 / 61 73 95 % 20 01:42 PM 102 / 62 74 97 % 15 01:47 PM 100 / 64 75 95 % 15 01:52 PM 90 / 59 65 98 % 15 01:55 PM 101 / 55 72 97 % 13 01:57 PM 98 / 58 75 98 % 15 02:02 PM 103 / 61 74 99 % 17 02:07 PM 107 / 60 76 100 % 16 02:12 PM 99 / 61 73 100 % 16 02:17 PM 104 / 64 79 99 % 22 02:21 PM 99 / 66 90 98 % 15 02:22 PM 101 / 70 85 100 % 11 02:27 PM 114 / 64 93 100 % 21 02:32 PM 108 / 64 87 98 % 14 02:37 PM 108 / 70 86 99 % 18 02:42 PM 109 / 72 79 100 % 20 02:47 PM 110 / 72 87 100 % 14 02:52 PM 114 / 67 86 100 % 22 02:57 PM 109 / 69 83 97 % 03:02 PM 111 / 67 86 86 % 20 03:07 PM 116 / 68 91 99 % 20 03:12 PM 116 / 69 85 100 % 19 03:03 PM / % 5 = Fully awake and oriented or at pre-proc level Procedural Medications Time Medication Dose Units Method Given By 01:35 PM Oxygen 2 L/min nasal cannula Cresencio Whitehead RN 01:38 PM Versed 3 mg Intravenous [place], Cresencio JUSTICE 01:38 PM Fentanyl 50 mcg Intravenous HenthorneCresencio RN 01:47 PM Versed 1 mg Intravenous [place], Cresencio JUSTICE 01:48 PM Fentanyl 25 mcg Intravenous [place], Cresencio JUSTICE 01:50 PM Lidocaine 2% 14 ml Subcutaneous Ankit Hernandez MD, FACC 02:06 PM Heparin 2000 units Intravenous HenthorneCresencio RN 02:09 PM Heparin 2000 units Intravenous HenthorneCresencio RN 02:30 PM Aggrastat Bolus: 46 ml Intravenous HenthornCresencio guajardo RN 02:31 PM Aggrastat 12.5mg/250ml 16.5 ml Intravenous HenthornCresencio guajardo RN 03:03 PM Heparin 1000 units Intravenous HenthorneCresenico RN ASA Classification: CLASS II- Mild systemic disease (i.e. well-controlled diabetes, hypertension, asthma, cigarette smoking) Barbie Score Preprocedure Postprocedure Activity 2- Moves 4 extremities sustained head lift Activity 2- Moves 4 extremities sustained head lift Circulation 2- SBP +/= 20 points of pre-anesthetic level Circulation 2- SBP +/= 20 points of pre-anesthetic level Consciousness 2- Awake and alert oriented x 3 Consciousness 2- Awake and alert oriented x 3 O2 Saturation 2- Able to maintain O2 satruation of 92% on room air O2 Saturation 2- Able to maintain O2 satruation of 92% on room air Respiratory 2- Able to deep breathe and cough well Respiratory 2- Able to deep breathe and cough well Total Score 10 Total Score 10 Contrast Agent: Isovue Diagnostic Contrast: 225 ml Total Contrast: 225 ml Fluoro Dose: 2059 mGy Activated Clotting Time Time Seconds to Clot 02:09 PM 185 03:02 PM 245 Procedure Log Time Note Enter By 01:33 PM Pt arrived to freezer laboratory technician 2 at 13:33 tsites 01:33 PM Tara Beebe RT (R) Position: Scrub Time in: 13:33 tsites 01:33 PM Cresencio Whitehead RN Position: Preschool Teacher Assistant Time in: 13:33 tsites 01:34 PM Fiona Potts RN Position: Monitor Time in: 13:33 tsites 01:34 PM Patient charges- Angio tray pack, Navilyst 3mm J, Pulse Oximetry and ACIST tubing and transducer tsites 01:34 PM Case Delayed No tsites :34 PM Hair removed from procedure site in holding area using clippers. Bilateral groin prepped with Chloraprep by Tara Beebe (R), safety strap applied then patient was draped. Skin intact. tsites 01:34 PM Physician arrived 13:34 tsites 01:34 PM Meet and greet completed tsites 01:34 PM Sign in performed according to hospital policy. tsites 01:34 PM Procedure start 13:34 tsites 01:35 PM Time: 13:35 Oxygen on at 2 L/min per nasal cannula by Cresencio Whitehead RN tsites 01:36 PM CathStat 01:36 PM Vitals capture started with the following parameters, Patient=Adult, Interval=5 min, Initial Qjhjaqhs=736 mmHg, Deflation Rate=5 mmHg, Cuff placed on Left Arm 01:37 PM HR=73 bpm, ALHN=925/61 mmhg, SpO2=95.0 %, Resp=20 B/min 01:38 PM Time: 13:38 Versed 3 mg Intravenous Given by Cresencio Whitehead RN tsites 01:38 PM Time: 13:38 Fentanyl 50 mcg Intravenous Given by Cresencio Whitehead RN tsites 01:42 PM HR=74 bpm, NKBW=309/62 mmhg, SpO2=97.0 %, Resp=15 B/min 01:43 PM Recorded ECG: HR=73 Condition=Condition 1 01:47 PM HR=75 bpm, CXAN=148/64 mmhg, SpO2=95.0 %, Resp=15 B/min, Comment=SR 01:47 PM Pressure channel 1 zeroed. 01:47 PM Time out performed according to hospital policy tsites 01:47 PM Time: 13:47 Versed 1 mg Intravenous Given by Cresencio Whitehead RN tsites 01:48 PM Time: 13:48 Fentanyl 25 mcg Intravenous Given by Cresencio Whitehead RN tsites 01:49 PM Recorded Pressure: Ao, HR=59, Condition=Condition 1 (Aorta) Ao 77/61/69 01:50 PM Time: 13:50 14 ml Lidocaine 2% to right groin Subcutaneous Given by Ankit Hernandez MD, [facility] tsites 01:50 PM Access obtained by percutaneous puncture. 5Fr 10cm Terumo [place] sheath placed in right Femoral artery. [id number] tsites 01:50 PM 5Fr FR 4 catheter inserted over the wire [facility] tsites 01:51 PM RCA angiography performed in multiple views. tsites 01:52 PM HR=65 bpm, NIBP=90/59 mmhg, SpO2=98.0 %, Resp=15 B/min, Comment=SR 01:52 PM Catheter removed tsites 01:52 PM Time: 13:52 Patient comfortable and pain free: Yes tsites 01:52 PM Time: 13:52LOC: 5 = Fully awake and oriented or at pre-proc level tsites 01:53 PM Lesion found in Proximal RCA. Pre Stenosis: 80 Pre ANITA Flow: 3: Complete and Brisk Flow/Perfusion tsites 01:54 PM 5Fr IM catheter inserted over the wire [id number] tsites 01:54 PM Recorded Pressure: Ao, HR=70, Condition=Condition 1 (Aorta) Ao 78/63/70 01:54 PM Left KAROL to the mid LAD angio performed in multiple views. tsites 01:54 PM NIBP STAT measurement started. 01:55 PM HR=72 bpm, FVES=728/55 mmhg, SpO2=97 %, Resp=13 B/min 01:55 PM Catheter removed tsites 01:55 PM 5Fr FL 4 catheter inserted over the wire DN tsites 01:56 PM Recorded Pressure: Ao, HR=63, Condition=Condition 1 (Aorta) Ao 84/64/74 01:56 PM LCA angiography performed in multiple views. tsites 01:57 PM HR=75 bpm, NIBP=98/58 mmhg, SpO2=98.0 %, Resp=15 B/min, Comment=SR 01:57 PM Catheter removed tsites 01:57 PM Coronary Dominance: right tsites 01:57 PM 5Fr Pigtail catheter inserted over the wire [facility] tsites 01:57 PM Catheter selectively placed in left ventricle tsites 01:58 PM Recorded Pressure: LV, HR=79, Condition=Condition 1 (Left Ventricle) LV 106/0/12 01:58 PM Bolus angiogram of left Ventricle complete: 10 ml/sec for a total of 20 mls tsites 01:58 PM Recorded Pressure: LV, Ao, HR=74, Condition=Condition 1 (Left Ventricle) LV 106/2/17, (Aorta) Ao 96/63/78 01:59 PM Bolus angiogram of Aortic root complete: 10 ml/sec for a total of 20 mls tsites 02:01 PM Catheter removed tsites 02:01 PM 5Fr MPA catheter inserted over the wire [id number] tsites 02:01 PM Lesion found in Mid LAD. Pre Stenosis: 95 Pre ANITA Flow: 3: Complete and Brisk Flow/Perfusion tsites 02:01 PM Lesion found in Mid Circumflex. Pre Stenosis: 100 Pre ANITA Flow: 0: No Flow/No perfusion tsites 02:01 PM Circumflex, Obtuse Marginal, Left Posterior Descending, and Left Posterolateral Coronary Arteries with 100 % stenosis. tsites 02:02 PM HR=74 bpm, RZPW=403/61 mmhg, SpO2=99.0 %, Resp=17 B/min, Comment=SR 02:02 PM Lesion found in Mid RCA. Pre Stenosis: 99 Pre ANITA Flow: 3: Complete and Brisk Flow/Perfusion tsites 02:03 PM Right Coronary, Right Posterior Descending Arteries with Right Posterolateral and Acute Marginal branches with 99 % stenosis. tsites 02:05 PM Catheter removed tsites 02:05 PM Sheath exchanged for a 6 Fr 11 cm Cordis Joya sheath [id number] tsites 02:05 PM 6Fr JR4 Runway guide catheter was used to cannulate the PCI vessel successfully. reused? No tsites 02:06 PM Time: 14:06 Heparin 2000 units Intravenous Given by Cresencio Whitehead RN tsites 02:07 PM HR=76 bpm, DONA=508/60 mmhg, MpA3=660.0 %, Resp=16 B/min, Comment=SR 02:07 PM Time: 13:52 Patient comfortable and pain free: Yes tsites 02:07 PM Time: 13:52LOC: 5 = Fully awake and oriented or at pre-proc level tsites 02:07 PM .014 PT Graphix 180cm guide wire across target lesion- successful. reused? No tsites 02:09 PM 2.5 mm x 20 mm Emerge Monorail balloon across target lesion- successful. reused? No tsites 02:09 PM At 14:09 the ACT was 185 seconds. tsites 02:09 PM Time: 14:09 Heparin 2000 units Intravenous Given by Cresencio Whitehead RN tsites 02:12 PM HR=73 bpm, NIBP=99/61 mmhg, NdW4=530.0 %, Resp=16 B/min, Comment=SR 02:12 PM Balloon catheter removed intact. tsites 02:12 PM Guide wire removed intact. tsites 02:14 PM .014 Fielder 300cm guide wire across target lesion- successful. reused? No tsites 02:15 PM Inflation device was opened. tsites 02:15 PM 1.2 mm x 20 mm Emerge Monorail balloon across target lesion- successful. reused? No tsites 02:16 PM Recorded Pressure: Ao, HR=78, Condition=Condition 1 (Aorta) Ao 86/67/77 02:17 PM HR=79 bpm, MAXD=667/64 mmhg, SpO2=99 %, Resp=22 B/min 02:17 PM Recorded Pressure: Ao, HR=84, Condition=Condition 1 (Aorta) Ao 91/71/81 02:20 PM NIBP STAT measurement started. 02:21 PM Balloon catheter removed intact. tsites 02:21 PM HR=90 bpm, NIBP=99/66 mmhg, SpO2=98.0 %, Resp=15 B/min 02:22 PM HR=85 bpm, IMNQ=080/70 mmhg, FjI0=825 %, Resp=11 B/min 02:22 PM .014 PT Graphix 300cm guide wire across target lesion- successful. reused? No tsites 02:23 PM Time: 14:07LOC: 5 = Fully awake and oriented or at pre-proc level tsites 02:23 PM Time: 14:07 Patient comfortable and pain free: Yes tsites 02:24 PM balloon reinserted, 1.2 x 20 tsites 02:24 PM Balloon inflated @ 18 luc for 12 seconds tsites 02:24 PM Balloon inflated @ 18 luc for 8 seconds tsites 02:25 PM Balloon catheter removed intact. tsites 02:25 PM Recorded Pressure: Ao, HR=86, Condition=Condition 1 (Aorta) Ao 90/61/75 02:27 PM 2.5 x 20 balloon reinserted tsites 02:27 PM HR=93 bpm, OFPG=258/64 mmhg, KkE1=367 %, Resp=21 B/min 02:27 PM Recorded Pressure: Ao, HR=91, Condition=Condition 1 (Aorta) Ao 65/47/56 02:28 PM Balloon inflated @ 14 luc for 11 seconds tsites 02:28 PM Recorded Pressure: Ao, HR=90, Condition=Condition 1 (Aorta) Ao 78/57/67 02:28 PM Balloon inflated @ 14 luc for 8 seconds tsites 02:29 PM Balloon inflated @ 14 luc for 9 seconds tsites 02:29 PM Balloon catheter removed intact. tsites 02:30 PM Fielder wire cut per Dr. Hernandez tsites 02:31 PM Time: 14:30 Aggrastat Bolus: 46 ml Intravenous Given by Cresencio Whitehead RN Silveira pump tsites 02:31 PM Time: 14:31 Aggrastat 12.5mg/250ml 16.5 ml Intravenous Given by Cresencio Whitehead RN Silveira pump tsites 02:31 PM 4.0mm x 38mm Synergy drug-eluting stent across target lesion- successful Lot #[id number] tsites 02:32 PM HR=87 bpm, MHFZ=162/64 mmhg, SpO2=98.0 %, Resp=14 B/min, Comment=SR 02:33 PM Stent deployed @ 16 luc for 120 seconds tsites 02:35 PM Stent delivery system removed intact. tsites 02:37 PM HR=86 bpm, PNQJ=821/70 mmhg, SpO2=99.0 %, Resp=18 B/min, Comment=SR 02:37 PM 4.0mm x 20mm Synergy drug-eluting stent across target lesion- successful Lot #[id number] tsites 02:37 PM Time: 14:23LOC: 5 = Fully awake and oriented or at pre-proc level tsites 02:37 PM Time: 14:23 Patient comfortable and pain free: Yes tsites 02:40 PM Stent deployed @ 12 luc for 20 seconds tsites 02:41 PM Stent delivery system removed intact. tsites 02:42 PM HR=79 bpm, BLUP=674/72 mmhg, GlB7=794.0 %, Resp=20 B/min, Comment=SR 02:43 PM 4.5 mm x 15mm NC Emerge balloon across target lesion- successful. reused? No tsites 02:45 PM Balloon catheter removed intact. tsites 02:45 PM .014 Prowater 180cm guide wire across target lesion- successful. reused? No tsites 02:46 PM 4.5x15 reinserted tsites 02:47 PM HR=87 bpm, UMKP=239/72 mmhg, GrM4=434.0 %, Resp=14 B/min, Comment=SR 02:47 PM Balloon catheter removed intact. tsites 02:48 PM 4.5 mm x 12mm NC Trek Rx balloon across target lesion- successful. reused? No tsites 02:51 PM Balloon inflated @ 16 luc for 13 seconds tsites 02:52 PM Balloon inflated @ 12 luc for 11 seconds tsites 02:52 PM HR=86 bpm, SZIJ=743/67 mmhg, NeJ8=233.0 %, Resp=22 B/min, Comment=SR 02:52 PM Time: 14:37 Patient comfortable and pain free: Yes tsites 02:52 PM Time: 14:37LOC: 5 = Fully awake and oriented or at pre-proc level tsites 02:53 PM Balloon catheter removed intact. tsites 02:53 PM Guide wire removed intact, Prowater tsites 02:54 PM Guide wire removed intact, PT graphix tsites 02:54 PM Guide catheter removed intact. tsites 02:55 PM 6Fr EBU 3.5 [place] Bright-Tip guide catheter was used to cannulate the PCI vessel successfully. reused? No tsites 02:57 PM HR=83 bpm, GWMH=285/69 mmhg, SpO2=97.0 %, Comment=SR 03:00 PM 2.0 mm x 12 mm Emerge Monorail balloon across target lesion- successful. reused? No tsites 03:01 PM Balloon inflated @ 14 luc for 20 seconds tsites 03:02 PM HR=86 bpm, NFTY=220/67 mmhg, SpO2=86.0 %, Resp=20 B/min, Comment=SR 03:02 PM At 15:02 the ACT was 245 seconds. tsites 03:03 PM 2.25mm x 20mm Synergy drug-eluting stent across target lesion- successful Lot #[id number] tsites 03:03 PM Time: 14:52 Patient comfortable and pain free: Yes tsites 03:03 PM Time: 14:52LOC: 5 = Fully awake and oriented or at pre-proc level tsites 03:03 PM Time: 15:03 Heparin 1000 units Intravenous Given by Cresencio Whitehead RN tsites 03:06 PM Stent deployed @ 14 luc for 22 seconds tsites 03:07 PM HR=91 bpm, CXUB=143/68 mmhg, SpO2=99.0 %, Resp=20 B/min, Comment=SR 03:08 PM Stent delivery system removed intact. tsites 03:08 PM Guide wire removed intact. tsites 03:08 PM Guide catheter removed intact. tsites 03:09 PM Bolus angiogram of right Femoral complete: 2 ml/sec for a total of 4 mls tsites 03:10 PM Sign out completed: Radiation Dose 2059.44 mGy Fluoro Time: 25.3 Isovue 370 - 200ml contrast 225 ml given by Ankit Hernandez MD, [facility]. Complications: NoneCardiac Rehab Consult needed: YesConfirmed administered medications: Yes tsites 03:11 PM Lesion found in 1st Diagonal. Pre Stenosis: 100 Pre ANITA Flow: tsites 03:11 PM Mid/Distal Left Anterior Descending Coronary Artery and diagonal branches with 100% stenosis. tsites 03:12 PM HR=85 bpm, TJRY=557/69 mmhg, TcW1=218.0 %, Resp=19 B/min, Comment=SR 03:15 PM Procedure completed at 15:10 tsites 03:16 PM Isovue 370 - 200ml,1 Bottle(s) used. tsites 03:16 PM Sheath left in place to be pulled on floor/holding area tsites 03:16 PM Post ECG NSR tsites 03:16 PM Post Blood Pressure 116/69 tsites 03:16 PM 15:16 Post Pulses Bilateral DP \\T\\ PT 1+ tsites 03:18 PM Information taught PCI and Cardiac Cath tsites 03:18 PM Education needs Plan of Care and Responsibilities of Patient in Care tsites 03:18 PM Learning barriers :None tsites 03:18 PM Education Methods Verbal tsites 03:18 PM Education evaluation Able to repeat information tsites 03:18 PM Site status No bleeding/hematoma - Rt Groin as reported by Tara Beebe RT (R) at 15:18 tsites 03:18 PM Opsite applied tsites 03:18 PM Plavix, Effient or Brilinta given Yes tsites 03:18 PM Time: 15:03LOC: 5 = Fully awake and oriented or at pre-proc level tsites 03:18 PM Time: 15:03 Patient comfortable and pain free: Yes tsites 03:21 PM Report given to Valerie JUSTICE Pt taken to 2N Room #8. 15:21 tsites 03:22 PM Patient out of room: 15:22 tsites 03:22 PM Family placed in sent to room, consult full. tsites 03:22 PM Complications: None tsites Complications Complication None Hemodynamics Pressures Site Systolic/A Wave Diastolic/V Wave Mean AO 77 61 69 AO 78 63 70 AO 84 64 74 LV 106 0 12 LV 106 2 17 AO 96 63 78 AO 86 67 77 AO 91 71 81 AO 90 61 75 AO 65 47 56 AO 78 57 67 Post Procedure Information Blood Pressure: 116/69 mmHg Rhythm: NSR Post procedural instructions were given Site Checks Time Location Status Staff Sheath In? Note 03:18 PM Rt Groin No bleeding/hematoma Tara Beebe RT (R) Pulses Time Site Pre-Procedure Post-Procedure Note Bilateral DP 2+ Bilateral PT 1+ 3:16:00 PM Bilateral DP \\T\\ PT 1+ Updated by Jesusita Irvin RT (R) on 11/12/2016 3:30:08 PM Jesusita Irvin RT electronically signed on 11/12/2016 3:30:58 PM with status of Final
[2016-11-12] MEDS: *HR* OxyCODONE/APAP 5/325 TABLET PO PRN (17:12)
--- NOTE | 2016-11-12 17:15 | Internal Med Progress Note ---
Date of Encounter: 11/12/16 Time of Encounter: 10:00 - Assessment and plan (1) NSTEMI (non-ST elevated myocardial infarction) Current Visit: Yes Status: Acute Assessment and plan: chest pain with elevated troponn. Patient has a history of CAD S/P CABG. Cardio consult appreciated. Patient had LHC today. (2) HTN (hypertension) Current Visit: Yes Status: Chronic Assessment and plan: continue home medication Qualifiers: Hypertension type: essential hypertension Qualified Code(s): I10 - Essential (primary) hypertension (3) Hyperkalemia Current Visit: Yes Status: Acute Assessment and plan: improved (4) Chest pain Current Visit: Yes Status: Acute Assessment and plan: consider CAD and NSTEMI. Had LHC today. Qualifiers: Chest pain type: intercostal pain Qualified Code(s): R07.82 - Intercostal pain (5) DVT prophylaxis Current Visit: Yes Status: Acute Assessment and plan: heparin subcutaneosly. - Time Spent With Patient 25 - 35 minutes - Subjective Interval history: patient is a 66-year-old male admitted for chest pain. physical past medical hisory is significant for CAD S/P CABG, hyperten , hyperlipidemia Patient was seen and examind. He is pain free when I saw him. Vitals stable. However, elevated troponin suggest NSTEMI. Cardio consult appreciated. Pt had C today. - Constitutional Vitals: Temp Pulse Resp BP Pulse Ox 98.2 F 76 16 108/73 95 11/12/16 15:42 11/12/16 15:42 11/12/16 15:42 11/12/16 15:42 11/12/16 11:31 General appearance: Present: A&O X 3, no acute distress, answers questions appropriately - Head Head exam: Present: atraumatic, normocephalic - Eye Eye exam: Present: PERRL, conjuntiva pink, sclera anicteric Pupils: Present: PERRL - Neck Neck exam general surgery: Present: supple, trachea midline. Absent: lymphadenopathy - Respiratory Respiratory exam: Present: CTAB. Absent: accessory muscle use, rales, rhonchi, wheezes - Cardiovascular Cardiovascular exam: Present: RRR, +S1, +S2. Absent: diastolic murmur, gallop, rubs, systolic murmur - GI/Abdominal GI/Abdominal exam: Present: normal bowel sounds, soft, no peritoneal signs. Absent: distended, tenderness - Extremities Exam Extremities exam: Present: warm, radial pulses palpable and symetrical. Absent : calf tenderness, cyanotic, pedal edema - Neurological Exam Neurological exam: Present: CN II-XII intact, oriented X3, no focal deficits. Absent: pronater drift, facial droop, speech deficit - Skin Skin exam: Present: dry, intact Internal Medicine: Result - Labs CBC & Chem 7: 11/11/16 13:04 11/12/16 00:40 - ABG Interpretation ABG results: PT/INR, D-dimer PT 12.5 Seconds (9.4-12.1) H 11/11/16 13:04 Consult Discharge Plan - Plan Referrals: Milena Pederson CNP [Primary Care Provider] - 11/22/16 4:00 pm Robin Hagan CNP [Advanced Practice Nurse] - (Cardiology will call patient at home with appointment due to them making their own appoinments)
--- NOTE | 2016-11-12 18:32 | Invasive Diagnostic Lab ---
Name: Tim Colon Date of Study: 11/12/2016 Date: 1950 Ht: 177.8 cm /70.0 in Medical Record#: [id number] Age: 66 Wt: 89.1 kg / 196.43 lb Account/Order#: [id number] Gender: Male BSA: 2.07 Order #: [id number] Fluoro Dose: 2059 mGy BMI: 28.18 Procedure Physician: Ankit Hernandez MD, [facility] Referring MD: Referring MD: Procedures Performed: LEFT HEART CATH W/ GRAFTS Stent w/ PTCA Single Major Vessel Stent w/ PTCA Single Major Vessel Aortic Root Injection Iliofemoral angiography with cath Indications: Non-Stemi Impressions: There is severe three vessel coronary artery disease. The left ventricle is normal and has normal contractility EF 55% Patient had successful PTCA/Drug-Eluting Stent placement in the mid RCA. Patient had successful PTCA/Drug-Eluting Stent placement in the proximal RCA Patient had successful PTCA/Drug-Eluting Stent placement in the 1st Diagonal. S/P CABG 1 of 3 patent bypass grafts. Recommendations: Optimal medical therapy of patient's disease. Aggressive risk factor modification. History/Risk Factors: Hypertension Dyslipidemia Previous CABG Procedure Access obtained in the right Femoral artery by percutaneous puncture Patient had successful PTCA/Drug-Eluting Stent placement in the proximal RCA, mid RCA, and 1st Diag. Complications: None Contrast: Isovue 225ml Hemodynamics: Pressures Site Systolic/ A Wave Diastolic/ V Wave End Diastolic/ Mean HR AO 77 61 69 59 AO 78 63 70 70 AO 84 64 74 63 LV 106 0 12 79 LV 106 2 17 73 AO 96 63 78 78 AO 86 67 77 78 AO 91 71 81 84 AO 90 61 75 86 AO 65 47 56 91 AO 78 57 67 90 LV Ventriculography Ejection Method: LV Gram Ejection Fraction: 55% Wall Motion: KELLER Anterobasal Normal Anterolateral Normal Apical: Normal Inferoapical Normal Inferobasal Normal Coronary Dominance: right Lesion Findings/Interventions * Left Main Coronary Artery The LMCA is angiographically free of disease. * Left Anterior Descending There is a 95% stenosis in the Mid LAD. The lesion has a ANITA flow of 3. Proximal LAD has mild disease. There is a 20 mm long, 90% stenosis in the 1st Diagonal. The lesion has a ANITA flow of 0 and has no thrombus present. An intervention was performed on the 1st Diagonal with a final stenosis of 0%. There were no lesion complications. The final ANITA flow was 3. * Circumflex There is a 100% stenosis in the Mid Circumflex. The lesion has a ANITA flow of 0 and has collaterals which feed from right to left. Known from before. * Right Coronary Artery There is a 20 mm long, 80% stenosis in the Proximal RCA. The lesion has a ANITA flow of 3, has no thrombus present, and has collaterals which feed from left to right. An intervention was performed on the Proximal RCA with a final stenosis of 0%. There were no lesion complications. The final ANITA flow was 3. There is a 38 mm long, 99% stenosis in the Mid RCA. The lesion has a ANITA flow of 2 and has no thrombus present. An intervention was performed on the Mid RCA with a final stenosis of 0%. There were no lesion complications. The final ANITA flow was 3. Mild disease in the R PDA. Brief period of inferior ST elevation during intervention. Additional Findings: Grafts * The left internal mammary graft to the Mid LAD is patent. ANITA flow is 3. * The saphenous vein graft to the PDA is occluded. * The saphenous vein graft to the 1st Diagonal is occluded. Visualized portion of iliofemoral artery without severe disease. Aortic root injection shows it is not severely dilated and no grafts present. Interventional Device(s) Vessel Segment Type Name Diameter (mm) Length (mm) Proximal RCA Drug Eluting Stent Synergy 4 20 Proximal RCA Balloon NC Trek Rx 4.5 12 Proximal RCA Balloon Emerge Monorail OTW 1.2 20 Mid RCA Drug Eluting Stent Synergy 4 38 Mid RCA Balloon NC Trek RX 4.5 12 Mid RCA Balloon Emerge Monorail 1.2 20 1st Diagonal Balloon Emerge Monorail 2 12 1st Diagonal Drug Eluting Stent Synergy 2.25 20 Updated by RT Umang (R) on 11/12/2016 3:28:52 PM Ankit Hernandez MD, FACC electronically signed on 11/12/2016 6:28:29 PM with status of Final
[2016-11-12] MEDS ORDERED: *HR* Atropine Sulfate 1 MG/10 ML SYRINGE ONE (18:46)
[2016-11-12] MEDS: *HR* Ticagrelor 90 MG TABLET PO SCH (21:10)
[2016-11-12] MEDS: Melatonin 3 MG TABLET PO SCH (21:10)
[2016-11-12] MEDS ORDERED: *HR* LORazepam 0.5 MG TABLET PO ONE (22:13)
[2016-11-13 03:52] LABS: Basophils % 0.3 %; Eosinophils # 0.1 K/mcL (0.0-0.6); Eosinophils % 0.7 %; Hematocrit 39.8 % (37.5-50.1); Hemoglobin 13.5 g/dL (12.9-16.9); Immature Granulocytes % 0.3 % (0-4); Lymphocytes # 1.7 K/mcL (0.6-4.6); Lymphocytes % 15.6 %; Mean Corpuscular HGB Conc 33.9 g/dL (31.6-35.5); Mean Corpuscular Hemoglobin 30.5 pg (28.0-33.3); Mean Platelet Volume 11.4 fL (9.4-12.4); Monocytes # 0.8 K/mcL (0.0-1.3); Neutrophils # 7.9 K/mcL (1.6-8.9); Platelet Count 156 K/mcL (140-400); Red Blood Count 4.42 M/mcL (4.19-5.50); Red Cell Distribution Width 12.5 % (11.5-14.5); Segmented Neutrophils % 75.1 %
[2016-11-13 04:07] LABS: BUN/Creatinine Ratio 22 (6-26); Blood Urea Nitrogen 19 mg/dL (8-26); Calcium 8.9 mg/dL (8.6-10.8); Carbon Dioxide 26 mEq/L (19-29); Chloride 107 mEq/L (98-109); Glucose 97 mg/dL (70-99); Osmolality,Calculated 288 (280-300); Potassium 4.3 mEq/L (3.5-4.5); Sodium 138 mEq/L (136-145); eGFR For African Americans > 60 (> 60); eGFR For Non-African Americans > 60 (> 60)
[2016-11-13] MEDS ORDERED: Benzonatate 100 MG CAPSULE PO ONE (04:28)
[2016-11-13] MEDS: *HR* Heparin 5,000 UNIT/ML VIAL SQ SCH (04:57)
[2016-11-13] MEDS: *HR* OxyCODONE/APAP 5/325 TABLET PO PRN (05:03)
[2016-11-13 08:18] VITALS: BP 119/84
[2016-11-13] MEDS: Aspirin 81 MG TAB.CHEW PO SCH (09:01)
[2016-11-13] MEDS: *HR* Ticagrelor 90 MG TABLET PO SCH (09:02)
[2016-11-13] MEDS: Isosorbide MONOnitrate (24 HR) 30 MG TAB.ER.24H PO SCH (09:03)
[2016-11-13] MEDS: Niacin (24 HR) 500 MG TAB.ER.24H PO SCH (09:06)
[2016-11-13] MEDS: Cyanocobalamin (B-12) 1,000 MCG TABLET PO SCH (09:07)
[2016-11-13] MEDS: Multivit/Ca/Min/Fe/FA 1 TAB TABLET PO SCH (09:07)
--- NOTE | 2016-11-13 09:35 | Cardiology Progress Note ---
Date of Encounter: 11/13/16 Time of Encounter: 09:33 Assessment and Plan (1) NSTEMI (non-ST elevated myocardial infarction) Current Visit: Yes Status: Acute Per cardiology: Troponins 0.1, 0.29, 0.31, 0.23. S/p C yesterday with severe 3 vessel CAD. Successful PTCA/MAYELA to mid RCA, prox RCA, 1st diag. 1/3 patent bypass grafts. ACEVES-mid LAD patent, SVG-PDA occluded, SVG-1st diag occluded. Pt reports one episode of chest pain last night, brief, left sided, relieved with Percocet, no recurrence. Currently chest pain free. DAPT (ASA and Brilinta) uninterrupted x 1 year. Pt verbalizes understanding. Continue BB, Statin. Increase imdur to 60mg daily. Right femoral access site healing well. No bleeding, hematoma or ecchymosis noted. Follow-up in 1 week with cardiology--will coordinate. Cardiology signing off. Reconsult PRN. (2) HTN (hypertension) Current Visit: Yes Status: Chronic Per cardiology: Controlled on current meds. Qualifiers: Hypertension type: essential hypertension Qualified Code(s): I10 - Essential (primary) hypertension (3) History of coronary artery disease Current Visit: Yes Status: Chronic Per cardiology: C details above. ASA, Brilinta, BB, Statin, Nitrates. Discussion w patient/family: The assessment and plan as outlined above was discussed with the patient and/or family members who expressed understanding and agreement. All questions were answered. Thank you for involving us in the care of your patient. Please call with any questions. I will discuss all the above with Dr. Sagastume and make changes as necessary. Subjective Principal diagnosis: NSTEMI Interval history: S/p [facility] yesterday with severe 3 vessel CAD. Successful PTCA/MAYELA to mid RCA, prox RCA, 1st diag. 1/3 patent bypass grafts. ACEVES-mid LAD patent, SVG-PDA occluded, SVG-1st diag occluded. Pt reports one episode of chest pain last night , brief, left sided, relieved with Percocet, no recurrence. Currently chest pain free. Objective Vital Signs, Last 4 Hours Temp Pulse Resp BP Pulse Ox 11/13/16 08:16 97.6 F 81 18 119/84 98 11/13/16 08:00 74 Vital Signs Temp Pulse Pulse Resp BP Pulse Ox 11/13/16 08:16 97.6 F 81 18 119/84 98 11/13/16 08:00 74 11/13/16 04:17 67 11/13/16 03:59 98.0 F 67 16 112/78 96 11/13/16 00:20 97.8 F 55 16 93/55 95 11/12/16 23:00 55 95/63 11/12/16 22:00 51 95/65 11/12/16 21:00 54 107/68 11/12/16 20:30 59 104/70 11/12/16 20:00 58 104/71 11/12/16 19:45 59 109/72 11/12/16 19:42 97.5 F L 61 18 109/72 97 11/12/16 19:35 85 97 11/12/16 19:30 58 107/77 11/12/16 19:15 81 115/88 11/12/16 19:10 59 121/86 11/12/16 19:05 81 118/82 11/12/16 19:00 79 111/84 11/12/16 18:55 82 82 114/73 11/12/16 16:55 74 11/12/16 16:00 77 16 99/77 97 11/12/16 15:55 73 102/72 11/12/16 15:45 76 105/75 11/12/16 15:42 98.2 F 76 16 108/73 11/12/16 15:40 77 16 108/73 97 11/12/16 11:31 97.8 F 58 14 104/64 95 Intake and Output 11/12/16 11/13/16 11/13/16 23:59 07:59 15:59 Intake Total 490 / 490 Balance 490 / 490 Intake: IV Fluids 250 / 250 Aggrastat 12.5 MG/250 ML 250 / 250 12.5 mg In 250 ml @ 0.15 MCG/KG/MIN 15.946 mls/hr IVC .[id number] [facility] Rx#: [id number] Oral 240 / 240 Other: Weight 91.2 kg Patient Weight 11/13/16 23:59 Weight 91.2 kg General: Conversant, No Apparent Distress HEENT: Atraumatic, Normocephaly, Mucus Membranes Moist Neck: No JVD, Normal carotid pulses Cardiac: Reg Rate and Rhythm, Normal S1 and S2, No Murmur Lungs: Normal Breath Sounds, No Wheeze, Rales, Rhonchi Neuro: Alert and responsive, No focal deficits noted Abdomen: Soft, Non-Tender Skin: Other (left femoral access site healing well. No bleeding, hematoma, or ecchymosis noted. ) Results 11/13/16 03:16 11/13/16 03:16 Lab Results 11/13/16 11/13/16 03:16 03:16 WBC 10.6 Hgb 13.5 Hct 39.8 Plt Count 156 Sodium 138 Potassium 4.3 Chloride 107 Carbon Dioxide 26 BUN 19 Creatinine 0.86 Glucose 97 Calcium 8.9 Short CBC 11/13/16 Range/Units 03:16 WBC 10.6 (4.3-11.1) K/mcL Hgb 13.5 (12.9-16.9) g/dL Hct 39.8 (37.5-50.1) % Plt Count 156 (140-400) K/mcL Neutrophils # 7.9 (1.6-8.9) K/mcL BMP 11/13/16 Range/Units 03:16 Sodium 138 (136-145) mEq/L Potassium 4.3 (3.5-4.5) mEq/L Chloride 107 (98-109) mEq/L Carbon Dioxide 26 (19-29) mEq/L BUN 19 (8-26) mg/dL Creatinine 0.86 (0.72-1.25) mg/dL Glucose 97 (70-99) mg/dL Calcium 8.9 (8.6-10.8) mg/dL Cardiac Enzymes 11/12/16 Range/Units 12:49 Troponin I 0.20 H* (0-0.03) ng/mL Active Medications Aspirin (Aspirin) 81 mg PO DAILY ADRIAN Stop: 05/14/17 09:01 Last Admin: 11/13/16 09:01 Dose: 81 mg Cyanocobalamin (Vitamin B12) 1,000 mcg PO DAILY ADRIAN Stop: 05/14/17 09:01 Last Admin: 11/13/16 09:07 Dose: 1,000 mcg Heparin Sodium (Porcine) (Heparin) 5,000 unit SQ Q8HCO ADRIAN Stop: 05/14/17 06:01 Last Admin: 11/13/16 04:57 Dose: 5,000 unit Isosorbide Mononitrate (Imdur) 30 mg PO DAILY [facility] Stop: 05/13/17 18:01 Last Admin: 11/13/16 09:03 Dose: 30 mg Melatonin (Melatonin) 3 mg PO HS [facility] Stop: 05/13/17 21:01 Last Admin: 11/12/16 21:10 Dose: 3 mg Metoprolol Tartrate (Lopressor) 25 mg PO BID [facility] Stop: 05/13/17 21:01 Last Admin: 11/13/16 09:05 Dose: 25 mg Multivitamins/Calcium (Thera M Plus) 1 tab PO DAILY ADRIAN Stop: 05/14/17 09:01 Last Admin: 11/13/16 09:07 Dose: 1 tab Naloxone HCl (Narcan) 0.4 mg IVP Q2MIN PRN PRN Reason: Opioid Reversal Stop: 05/13/17 17:56 Niacin (Niaspan) 500 mg PO DAILY [facility] Stop: 05/14/17 09:01 Last Admin: 11/13/16 09:06 Dose: 500 mg Nitroglycerin (Nitroglycerin) 0.4 mg SL AD PRN PRN Reason: Chest Pain Stop: 05/13/17 17:55 Ondansetron HCl (Zofran) 4 mg IVP Q6HR PRN PRN Reason: Nausea And Vomiting Stop: 05/13/17 17:56 Oxycodone/Acetaminophen (Percocet 5/325) 1 each PO Q6HR PRN PRN Reason: Pain Stop: 05/14/17 16:33 Last Admin: 11/13/16 05:03 Dose: 1 each Simvastatin (Zocor) 40 mg PO HS [facility] Stop: 05/13/17 21:01 Last Admin: 11/12/16 21:10 Dose: 40 mg Ticagrelor (Brilinta) 90 mg PO BID [facility] Stop: 05/14/17 21:01 Last Admin: 11/13/16 09:02 Dose: 90 mg - Imaging and Cardiology Echo: report reviewed Cardiac cath: report reviewed - EKG Interpretation EKG results cardiology: other (24 hour tele AVG HR 66, SR, no significant pauses or arrhythmias) Consult Discharge Plan - Plan Additional Instructions: RISK FACTORS: STOP SMOKING: If you smoke, STOP. Smoking or tobacco use significantly increases your risk of heart disease because nicotine causes the arteries to narrow or constrict. It also causes fats to stick to the artery. Your chances of having a heart attack are greatly increased if you continue to smoke. For more information, call the education line for smoking cessation 7-435-RRLXTON EAT A LOW FAT/CHOLESTEROL/SODIUM DIET: This diet may help reduce your chances of having a heart attack. LIFTING: Avoid lifting anything more than 10 pounds for 5-7 days Prior to straining, laughing, sneezing and/or coughing, apply manual pressure directly over insertion site. ACTIVITY: You may walk or climb stairs as tolerated You can resume sexual activity as tolerated In general, you are encouraged to engage in a minimum of 30 minutes or more of moderate intensity physical activity, such as brisk walking, daily or at least 3 -4 times weekly BATHING Do not submerge the site into water (bath tub, hot tub, swimming pool) for 1 week. This can be a source for infection into the blood stream. You may shower after 24 hours SITE CARE: After 24 hours, you may remove the dressing and leave the site open to air. Keep the site clean and dry. Clean gently and pat dry. You can expect bruising and tenderness that gradually resolve within a week or two. Return to work as instructed per your physician Resume driving as instructed per physician Keep all scheduled follow up appointments Resume medications as instructed IMPORTANT: If prescribed a Platelet Aggregation Inhibitor such as, Plavix, Brilinta or Effient: Duration of therapy is minimum one year These medications are often used in combination with Aspirin in prevention of future heart attacks Never discontinue unless consult with your Cancer Registrar STROKE (CVA) Risk factors for a stroke are: Age, cigarette smoking, diabetes, excessive alcohol consumption, family history, high blood pressure, overweight, physical inactivity, prior stroke, heart attack, diagnosis of carotid artery stenosis or other artery disease. Warning signs: Sudden numbness or weakness of the face, arm or leg; especially on one side of the body, sudden confusion, trouble speaking or understanding, sudden trouble seeing in one or both eyes, sudden trouble walking, dizziness, loss of balance or coordination, sudden severe headache with no cause. Call 911 or go to the Emergency Room. CONGESTIVE HEART FAILURE: If you have been diagnosed with Congestive Heart Failure (CHF) and your symptoms return, make an appointment with your physician Weigh yourself daily. Notify your physician if you have a weight gain of two or more pounds in one day or five or more pounds in one week. If you experience any difficulty breathing, please call 911 BLEEDING: Although the risk of bleeding is minimal, it can happen. If you have any bleeding from the site, apply firm pressure above the puncture site for 10-15 minutes. If the bleeding does not stop, continue manual pressure and call 911 Contact your physician if: You develop a fever greater than 101 degrees Fahrenheit Your site becomes reddened or has any drainage You have an increase in pain or burning at the site or if a large knot forms at the site. If you experience chest pain, shortness of breath, dizziness, or extreme tiredness, stop the activity and rest. Please notify your physicians office if you experience any of these symptoms and they are not relieved by rest please call 911! Referrals: Milena Pederson CNP [Primary Care Provider] - 11/22/16 4:00 pm Robin Hagan CNP [Advanced Practice Nurse] - (Cardiology will call patient at home with appointment due to them making their own appoinments)
[2016-11-13] MEDS ORDERED: Isosorbide MONOnitrate (24 HR) 30 MG TAB.ER.24H PO ONE (09:46)
--- NOTE | 2016-11-13 09:53 | Discharge Summary ---
Date of Encounter: 11/13/16 Time of Encounter: 09:00 - Discharge Diagnosis (1) NSTEMI (non-ST elevated myocardial infarction) Priority: Primary Status: Acute (2) HTN (hypertension) Priority: Secondary Status: Chronic Qualifiers: Hypertension type: essential hypertension Qualified Code(s): I10 - Essential (primary) hypertension (3) Hyperkalemia Priority: Secondary Status: Acute (4) Chest pain Priority: Primary Status: Acute Qualifiers: Chest pain type: intercostal pain Qualified Code(s): R07.82 - Intercostal pain (5) DVT prophylaxis Priority: Secondary Status: Acute - Discharge Medications Prescriptions: Isosorbide MONOnitrate (24 HR) [Imdur] 60 mg PO DAILY #60 tab.er.24h Ticagrelor [Brilinta] 90 mg PO BID #60 tablet Home Medications: Cyanocobalamin (Vitamin B-12) [Vitamin B-12] 1,000 mcg SL DAILY 12/27/15 [ History] Aspirin 81 mg PO DAILY tab.chew 12/28/15 [Rx] Atorvastatin [Lipitor] 40 mg PO HS 01/21/16 [History] Melatonin 3 mg PO HS 11/11/16 [History] Metoprolol [Lopressor] 25 mg PO BID 11/11/16 [History] Multivitamin [Multi-Day Vitamins] 1 tab PO DAILY 11/11/16 [History] Niacin [Niacor] 500 mg PO DAILY 11/11/16 [History] Nitroglycerin [Nitrostat] 0.4 mg SL AD PRN 11/11/16 [History] Isosorbide MONOnitrate (24 HR) [Imdur] 60 mg PO DAILY #60 tab.er.24h 11/13/16 [ Rx] Ticagrelor [Brilinta] 90 mg PO BID #60 tablet 11/13/16 [Rx] Allergies/Adverse Reactions: Allergies No Known Allergies Allergy (Verified 01/21/16 19:23) Procedures/tests Complete & Pending: Procedures Performed prior 72 hours Category Date Time Status ECG 12 lead ECG [ECG] Routine Y 11/12/16 15:14 Ordered Date of admission: 11/12/16 13:43 Primary care physician: Milena Pederson CNP Discharging clinician: Natalio Coyne Anticipated date of discharge: 11/13/16 - Patient Status Disposition: Home, Self-Care Condition: Good Functional capacity at discharge: independent ambulation Overall status at discharge: patient is back to baseline - Discharge Instructions Follow Up With: Milena Pederson CNP [Primary Care Provider] - 11/22/16 4:00 pm Robin Hagan CNP [Advanced Practice Nurse] - (Cardiology will call patient at home with appointment due to them making their own appoinments) Additional Instructions: RISK FACTORS: STOP SMOKING: If you smoke, STOP. Smoking or tobacco use significantly increases your risk of heart disease because nicotine causes the arteries to narrow or constrict. It also causes fats to stick to the artery. Your chances of having a heart attack are greatly increased if you continue to smoke. For more information, call the education line for smoking cessation 5-296-GJYFCVW EAT A LOW FAT/CHOLESTEROL/SODIUM DIET: This diet may help reduce your chances of having a heart attack. LIFTING: Avoid lifting anything more than 10 pounds for 5-7 days Prior to straining, laughing, sneezing and/or coughing, apply manual pressure directly over insertion site. ACTIVITY: You may walk or climb stairs as tolerated You can resume sexual activity as tolerated In general, you are encouraged to engage in a minimum of 30 minutes or more of moderate intensity physical activity, such as brisk walking, daily or at least 3 -4 times weekly BATHING Do not submerge the site into water (bath tub, hot tub, swimming pool) for 1 week. This can be a source for infection into the blood stream. You may shower after 24 hours SITE CARE: After 24 hours, you may remove the dressing and leave the site open to air. Keep the site clean and dry. Clean gently and pat dry. You can expect bruising and tenderness that gradually resolve within a week or two. Return to work as instructed per your physician Resume driving as instructed per physician Keep all scheduled follow up appointments Resume medications as instructed IMPORTANT: If prescribed a Platelet Aggregation Inhibitor such as, Plavix, Brilinta or Effient: Duration of therapy is minimum one year These medications are often used in combination with Aspirin in prevention of future heart attacks Never discontinue unless consult with your Aviation Electronic Warfare Operator STROKE (CVA) Risk factors for a stroke are: Age, cigarette smoking, diabetes, excessive alcohol consumption, family history, high blood pressure, overweight, physical inactivity, prior stroke, heart attack, diagnosis of carotid artery stenosis or other artery disease. Warning signs: Sudden numbness or weakness of the face, arm or leg; especially on one side of the body, sudden confusion, trouble speaking or understanding, sudden trouble seeing in one or both eyes, sudden trouble walking, dizziness, loss of balance or coordination, sudden severe headache with no cause. Call 911 or go to the Emergency Room. CONGESTIVE HEART FAILURE: If you have been diagnosed with Congestive Heart Failure (CHF) and your symptoms return, make an appointment with your physician Weigh yourself daily. Notify your physician if you have a weight gain of two or more pounds in one day or five or more pounds in one week. If you experience any difficulty breathing, please call 911 BLEEDING: Although the risk of bleeding is minimal, it can happen. If you have any bleeding from the site, apply firm pressure above the puncture site for 10-15 minutes. If the bleeding does not stop, continue manual pressure and call 911 Contact your physician if: You develop a fever greater than 101 degrees Fahrenheit Your site becomes reddened or has any drainage You have an increase in pain or burning at the site or if a large knot forms at the site. If you experience chest pain, shortness of breath, dizziness, or extreme tiredness, stop the activity and rest. Please notify your physicians office if you experience any of these symptoms and they are not relieved by rest please call 911! - Diet and Activity Activity: increase activity as tolerated Diet: low fat, low cholesterol, low salt diet Interval History: Mr. Colon is a 66 year old male with a history of multivessel coronary artery disease s/p CABG in 12/2015 at [facility] as a transfer from here. He was in his usual state of health until he went on a treadmill about a week and a half ago when used the incline option. Whilst on the treadmill he began to experience achy/ pressure like/crampy left sided chest pain, radiated to the left jaw and arm and lasted a few seconds. The pain abated after he got off the treadmill, since then he has had stuttering chest pain with same characteristic that sometimes does not respond to nitro. The pain sometimes comes on at rest, exertion worsens it. He has been getting this pain several times a week since the first episode. He denies any associated diaphoresis, shortness of breath, palpitations , nausea or vomiting, lightheadedness with any of the episodes. He came in today because he had it about 2 times; one in the morning and later this afternoon. In the ER his EKG was unchanged but his troponin level was slightly elevated at 0.1. Hospital course: Mr. Colon is a 66 year old male admitted as chest pain. Patient had history of CAD S/P CABG. His troponin is elevated during hospitalization. It was diagnosed as NSTEMI. Cardio consult was called. The patient had LHC. Patient recovered well after catheterization. Will discharge patient home and follow- up with cardiology as outpatient. Patient was seen and examined. He is awake alert, oriented 3. Vital signs stable. Cardiology saw patient this morning already, cleared for discharge. Patient is stable to discharge home, prescription will give patient. - Time Spent with Patient Total time spent providing and/or coordinating discharge services: Greater than 30 minutes - Constitutional Vitals: Temp Pulse Resp BP Pulse Ox 97.6 F 81 18 119/84 98 11/13/16 08:16 11/13/16 08:16 11/13/16 08:16 11/13/16 08:16 11/13/16 08:16 General appearance: Present: A&O X 3, no acute distress, answers questions appropriately - Head Head exam: Present: atraumatic, normocephalic - Eye Eye exam: Present: PERRL, conjuntiva pink, sclera anicteric Pupils: Present: PERRL - Neck Neck exam general surgery: Present: supple, trachea midline. Absent: lymphadenopathy - Respiratory Respiratory exam: Present: CTAB. Absent: accessory muscle use, rales, rhonchi, wheezes - Cardiovascular Cardiovascular exam: Present: RRR, +S1, +S2. Absent: diastolic murmur, gallop, rubs, systolic murmur - GI/Abdominal GI/Abdominal exam: Present: normal bowel sounds, soft, no peritoneal signs. Absent: distended, tenderness - Extremities Exam Extremities exam: Present: warm, radial pulses palpable and symetrical. Absent : calf tenderness, cyanotic, pedal edema - Neurological Exam Neurological exam: Present: CN II-XII intact, oriented X3, no focal deficits. Absent: pronater drift, facial droop, speech deficit - Skin Skin exam: Present: dry, intact
[2016-11-14] MEDS ORDERED: Isosorbide MONOnitrate (24 HR) 30 MG TAB.ER.24H PO SCH (09:00)
--- NOTE | 2016-11-15 08:58 | Electrocardiograph Report ---
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
== END 2016-11-13 10:21 | disposition home or self-care (01) | DRG 174 ==
LOC: EMEROO 12:21 → 2ANU 12:21 → 3BNU 15:49 → SUATTDRO 11-12 13:43 → 2NNU 11-12 14:38
PROVIDERS: ADMIT Internal Medicine Endocrinology, Diabetes & Metabolism; ATTEND Internal Medicine

== ENCOUNTER 2016-11-17 23:31 | Observation (INO) ==
[2016-11-18 00:19] LABS: Basophils % 0.6 %; Eosinophils # 0.1 K/mcL (0.0-0.6); Eosinophils % 1.7 %; Hematocrit 44.9 % (37.5-50.1); Immature Granulocytes % 0.3 % (0-4); Lymphocytes # 2.1 K/mcL (0.6-4.6); Lymphocytes % 29.8 %; Mean Corpuscular HGB Conc 33.9 g/dL (31.6-35.5); Mean Corpuscular Hemoglobin 30.2 pg (28.0-33.3); Mean Corpuscular Volume 89.3 fL (83.0-100.0); Mean Platelet Volume 10.4 fL (9.4-12.4); Monocytes # 0.6 K/mcL (0.0-1.3); Monocytes % 8.6 %; Neutrophils # 4.1 K/mcL (1.6-8.9); Platelet Count 224 K/mcL (140-400); Red Blood Count 5.03 M/mcL (4.19-5.50); Red Cell Distribution Width 12.6 % (11.5-14.5)
[2016-11-18 00:20] LABS: Hemoglobin 15.2 g/dL (12.9-16.9)
[2016-11-18 00:33] LABS: Alanine Aminotransferase 29 Units/L (0-55); Albumin 3.8 g/dL (3.5-5.0); Albumin/Globulin Ratio 1.1 (1.1-2.2); Alkaline Phosphatase 45 Units/L (38-126); Aspartate Amino Transferase 21 Units/L (5-34); BUN/Creatinine Ratio 17 (6-26); Bilirubin,Total 0.7 mg/dL (0.2-1.2); Blood Urea Nitrogen 18 mg/dL (8-26); Calcium 9.5 mg/dL (8.6-10.8); Carbon Dioxide 26 mEq/L (19-29); Chloride 106 mEq/L (98-109); Globulin 3.6 g/dL (2.4-3.5); Glucose 110 mg/dL (70-99); Osmolality,Calculated 293 (280-300); Potassium 3.9 mEq/L (3.5-4.5); Sodium 140 mEq/L (136-145); Total Protein 7.4 g/dL (6.0-8.3); eGFR For African Americans > 60 (> 60); eGFR For Non-African Americans > 60 (> 60)
[2016-11-18] MEDS ORDERED: Nitroglycerin 0.4 MG TAB.SUBL SL PRN (02:56)
--- NOTE | 2016-11-18 03:06 | Emergency Department Note ---
Disposition Clinical Impression: Chest pain of uncertain etiology Disposition: Admitted As Inpatient Condition: Good Referrals: NO,PCP [Primary Care Provider] - Forms: ED Satisfaction Letter Time of Disposition: 02:30 Chest Pain HPI - General Chief Complaint: ED Chest Pain Stated Complaint: chest pains Time Seen by Provider: 11/18/16 00:05 Source: patient Limitations: no limitations Vital Signs Reviewed: Yes Nursing Notes Reviewed: Yes - History of Present Illness HPI Narrative: Vague left axillary chest pain @ rest around 6 pm last night; no pain in the prior 3 days, but just left after another heart cath w/ stents placed 4 days ago w/ chest pain which was worse @ that time; prior bypass @ [facility] approx 10 months ago and no pain simiar to then, and not nearly as overt as the pain he was having last week; no diaphoresis; mild Troponin bump 5 days ago and unclear if new /mild change in his troponin or still tailing off troponin from last week vs chronic baseline troponin elevation; Pt complaint: chest pain Onset (ago): hour(s) Duration: constant Pain Location: left chest Severity: mild Severity scale (1-10): 2 Quality: sharp Pain Radiation: none Improves with: nothing Worsens with: nothing Associated symptoms: Denies: nausea, vomiting, diaphoresis, dyspnea (reports daily compliance w/ his ASA and new anti coagulant meds; ) - Related Data Home Medications Medication Instructions Recorded Confirmed Cyanocobalamin (Vitamin B-12) 1,000 mcg SL DAILY 12/27/15 11/11/16 [Vitamin B-12] Atorvastatin [Lipitor] 40 mg PO HS 01/21/16 11/11/16 Melatonin 3 mg PO HS 11/11/16 11/11/16 Metoprolol [Lopressor] 25 mg PO BID 11/11/16 11/11/16 Multivitamin [Multi-Day Vitamins] 1 tab PO DAILY 11/11/16 11/11/16 Niacin [Niacor] 500 mg PO DAILY 11/11/16 11/11/16 Nitroglycerin [Nitrostat] 0.4 mg SL AD PRN 11/11/16 11/11/16 Previous Rx's Medication Instructions Recorded Aspirin 81 mg PO DAILY tab.chew 12/28/15 Isosorbide MONOnitrate (24 HR) 60 mg PO DAILY #60 tab.er.24h 11/13/16 [Imdur] Ticagrelor [Brilinta] 90 mg PO BID #60 tablet 11/13/16 Allergies Allergy/AdvReac Type Severity Reaction Status Date / Time No Known Allergies Allergy Verified 11/17/16 23:34 Cardiovascular: Reports: as per HPI, chest pain Chest Pain PMH - Past Medical History Medical history: Reports: coronary artery disease, hyperlipidemia, hypertension , myocardial infarction Surgical history: Reports: coronary bypass (CABG) (12/2015), herniorrhaphy, orthopedic, other Psychiatric history: Reports: no psych history - Social History Smoking Status: Never smoker Alcohol use: Reports: occasionally Drug use: Reports: none Physical Exam - General Limitations: no limitations General appearance: alert - Head Head exam: atraumatic, normocephalic, normal inspection - Eye Eye exam: Present: normal appearance, PERRL, EOMI - Expanded Eye Exam Pupils: Left: reactive - ENT ENT exam: normal exam, normal oropharynx, mucous membranes moist - Expanded ENT Exam External ear exam: Present: normal external inspection Mouth exam: Present: normal external inspection Teeth exam: Present: normal inspection Throat exam: Present: normal inspection - Neck Neck exam: Present: normal inspection, full ROM, trachea midline - Chest Chest inspection: Present: normal inspection, symmetric chest wall rise - Respiratory Respiratory exam: Present: normal lung sounds bilaterally - Cardiovascular Cardiovascular exam: Present: regular rate, normal rhythm, normal heart sounds - Abdominal Exam Abdominal exam: Present: soft, Non-Tender. Absent: tenderness, distention, guarding, rebound, rigidity - Extremities Exam Extremities exam: Present: normal inspection, full ROM. Absent: tenderness, pedal edema - Expanded Upper Extremity Exam Shoulder exam: Present: normal inspection, full ROM Arm exam: Present: normal inspection, full ROM Elbow exam: Present: normal inspection, full ROM Forearm/Wrist exam: Present: normal inspection, full ROM Hand exam: Present: normal inspection, full ROM Vascular exam: Normal: capillary refill, radial pulse - Expanded Lower Extremity Exam Hip/Pelvis exam: Present: normal inspection, full ROM Upper leg exam: Present: normal inspection, full ROM Knee exam: Present: normal inspection, full ROM Lower leg exam: Present: normal inspection, full ROM Ankle exam: Present: normal inspection, full ROM Foot/toe exam: Present: normal inspection, full ROM Neurovascular/Tendon exam: Absent: motor deficit, sensory deficit, tendon deficit - Back Exam Back exam: Present: normal inspection, full ROM. Absent: tenderness - Neurological Exam Neurological exam: Present: alert, oriented X3 - Expanded Neurological Exam Patient oriented to: Present: person, place, time Coma Scale Eye Opening: Spontaneous Coma Scale Motor Response: Obeys Commands Coma Scale Verbal Response: Oriented Coma Scale Total: 15 - Psychiatric Psychiatric exam: Present: normal affect, normal mood - Skin Skin exam: Present: warm, dry, intact, normal color Course Vital Signs Temperature 97.6 F 11/17/16 23:34 Pulse Rate 77 11/17/16 23:34 Respiratory Rate 20 11/17/16 23:34 Blood Pressure 146/93 11/17/16 23:34 O2 Sat by Pulse Oximetry 95 11/17/16 23:34 Temperature 97.6 F 11/17/16 23:34 Pulse Rate 77 11/17/16 23:34 Respiratory Rate 20 11/17/16 23:34 Blood Pressure 146/93 11/17/16 23:34 O2 Sat by Pulse Oximetry 97 11/18/16 01:29 Oxygen Delivery Oxygen Delivery Room Air Chest Pain - Lab Data Result diagrams: 11/18/16 00:11 11/18/16 00:11 Lab Results 11/18/16 11/18/16 11/18/16 Range/Units 00:11 00:11 00:11 WBC 7.0 (4.3-11.1) K/mcL RBC 5.03 (4.19-5.50) M/mcL Hgb 15.2 D (12.9-16.9) g/dL Hct 44.9 (37.5-50.1) % MCV 89.3 (83.0-100.0) fL MCH 30.2 (28.0-33.3) pg MCHC 33.9 (31.6-35.5) g/dL RDW 12.6 (11.5-14.5) % Plt Count 224 (140-400) K/mcL MPV 10.4 (9.4-12.4) fL Immature Gran % 0.3 (0-4) % Seg Neutrophils % 59.0 % Lymphocytes % 29.8 % Monocytes % 8.6 % Eosinophils % 1.7 % Basophils % 0.6 % Neutrophils # 4.1 (1.6-8.9) K/mcL Lymphocytes # 2.1 (0.6-4.6) K/mcL Monocytes # 0.6 (0.0-1.3) K/mcL Eosinophils # 0.1 (0.0-0.6) K/mcL Basophils # 0.0 (0.0-0.2) K/mcL Sodium 140 (136-145) mEq/L Potassium 3.9 (3.5-4.5) mEq/L Chloride 106 (98-109) mEq/L Carbon Dioxide 26 (19-29) mEq/L BUN 18 (8-26) mg/dL Creatinine 1.08 (0.72-1.25) mg/dL Est GFR ( Amer) > 60 (> 60) Est GFR (Non-Af Amer) > 60 (> 60) BUN/Creatinine Ratio 17 (6-26) Glucose 110 H (70-99) mg/dL Calculated Osmolality 293 (280-300) Calcium 9.5 (8.6-10.8) mg/dL Total Bilirubin 0.7 (0.2-1.2) mg/dL AST 21 (5-34) Units/L ALT 29 (0-55) Units/L Alkaline Phosphatase 45 (38-126) Units/L Troponin I 0.08 H* (0-0.03) ng/mL Serum Total Protein 7.4 (6.0-8.3) g/dL Albumin 3.8 (3.5-5.0) g/dL Globulin 3.6 H (2.4-3.5) g/dL Albumin/Globulin Ratio 1.1 (1.1-2.2) - EKG Data EKG attestation: Yes I reviewed and interpreted this EKG. EKG results narrative: nsr, no acute injury pattern noted; intervals unremarkable; EKG shows normal: sinus rhythm Rate: normal Rhythm: NSR
[2016-11-18] MEDS ORDERED: *HR* LORazepam 0.5 MG TABLET PO ONE (05:06)
[2016-11-18] MEDS ORDERED: Naloxone 0.4 MG/ML INJ IVP PRN (06:12)
[2016-11-18] MEDS ORDERED: *HR* Morphine 2 MG/ML SYRINGE IVP PRN (06:15)
--- NOTE | 2016-11-18 07:29 | Internal Med History&Physical ---
Date of Encounter: 11/18/16 Time of Encounter: 05:50 Assessment and Plan (1) Chest pain Current visit: Yes Status: Acute Chest pain is atypical. Pt has significant h/o coronary artery disease and recent stent placement. Troponin is mildly elevated. This could be secondary to an NSTEMI versus recent NSTEMI with the troponins trending down. Nitroglycerine and morphine PRN. Cardiology consultation. Qualifiers: Chest pain type: unspecified Qualified Code(s): R07.9 - Chest pain, unspecified (2) Elevated troponin Current visit: Yes Status: Acute Troponin is mildly elevated. This could be secondary to new NSTEMI versus recent NSTEMI with the troponins trending down. Nitroglycerine and morphine PRN. Cardiology consultation. (3) CAD in [place] artery Current visit: Yes Status: Chronic Continue aspirin and brilinta. Pt had recent stent placement (4) Hx of essential hypertension Current visit: Yes Status: Chronic BP is stable. continue home medications Internal Medicine - H&P: HPI Chief complaint: Chest pain Admitted From: Emergency Dept Plans for Post Hospital Care: Home History of present illness: Mr. Colon is a 66 year old male with a history of multi vessel coronary artery disease s/p CABG in 12/2015 at [facility]; recent hospitalization 1 week ago for chest pain with radiation to the jaw on the left upper extremity- noted to have NSTEMI (peak troponin of 0.31). He had LHC on 11/12/16, which showed severe 3 vessel CAD. Successful PTCA/MAYELA to mid RCA, prox RCA, 1st diag. 1/3 patent bypass grafts. ACEVES-mid LAD patent, SVG-PDA occluded, SVG-1st diag occluded. He followed up with cardiology team yesterday and was told he was fine. Yesterday at about 6 PM, he noticed pain in the left pectoral area, which he describes as cramping in and out, with interval of about 2 minutes of pain free state. Pain is 3-4/10, with occasional radiation on the medial aspect of the left arm. No radiation of the jaw. Denies pleuritic component. No associated palpitations, nausea, sweating, shortness of breath. He denies abdominal pain, dysuria, hematuria, bowel problems. He was evaluated in the emergency department. Troponin was noted to be 0.08. Nitroglycerine was given, which did not improve the chest pain and caused headache to the pt. He is admitted to the hospitalist service for further management. Past Med Surg Social Fam HX - Past Medical History Medical history: coronary artery disease, hyperlipidemia, hypertension, myocardial infarction Psychiatric history: no psych history - Past Surgical History Surgical History: coronary bypass (CABG), herniorrhaphy, orthopedic, other - Social History Smoking Status: Never smoker Smokeless Tobacco Status: No Alcohol use: occasionally Drug use: none - Family History Brother Adopted: No Living Status: Still Living Hx Family Cardiac Disorders: Yes Hx Family Respiratory Disorders: No Hx Family Cancer: No Hx Family GI Disorders: No Hx Family Endocrine Disorder: No Hx Family Neuromuscular Disorders: No Hx Family Neurologic Disorders: No Hx Family HEENT Disorders: No Hx Family Autoimmune Disorders: No Internal Medicine - H&P: Meds Cyanocobalamin (Vitamin B-12) [Vitamin B-12] 1,000 mcg SL DAILY 12/27/15 [ History] Aspirin 81 mg PO DAILY tab.chew 12/28/15 [Rx] Atorvastatin [Lipitor] 40 mg PO HS 01/21/16 [History] Melatonin 3 mg PO HS 11/11/16 [History] Metoprolol [Lopressor] 25 mg PO BID 11/11/16 [History] Multivitamin [Multi-Day Vitamins] 1 tab PO DAILY 11/11/16 [History] Niacin [Niacor] 500 mg PO DAILY 11/11/16 [History] Nitroglycerin [Nitrostat] 0.4 mg SL AD PRN 11/11/16 [History] Isosorbide MONOnitrate (24 HR) [Imdur] 60 mg PO DAILY #60 tab.er.24h 11/13/16 [ Rx] Ticagrelor [Brilinta] 90 mg PO BID #60 tablet 11/13/16 [Rx] Allergies No Known Allergies Allergy (Verified 11/17/16 23:34) All Systems PM: A 10-system review of systems was performed and is negative for pertinent findings except as documented above in the HPI. - Constitutional Vitals: Temp Pulse Resp BP Pulse Ox 98.0 F 58 16 136/93 96 11/18/16 04:23 11/18/16 04:23 11/18/16 04:23 11/18/16 04:23 11/18/16 04:23 Exam: General: Not in acute distress at the time of my evaluation HEENT: Oral mucosa is moist. No conjunctival palor or scleral icterus Neck: No obvious neck swellings Lungs: Clear to auscultation Cardiac: Regular rate and rhythm. No significant murmurs. No chest wall tenderness Abdomen: Soft, non tender. Bowel sounds present Genitourinary: No paulino catheter Neurological: Alert and oriented. No gross localizing deficits Psych: Not aggressive or agitated Extremities: no significant leg edema Skin: No generalized rash Internal Med - H&P Results - Labs CBC & Chem 7: 11/18/16 00:11 11/18/16 00:11 Labs: Cardiac Enzymes 11/18/16 Range/Units 06:35 Troponin I 0.06 H* (0-0.03) ng/mL - EKG Data -: EKG Interpreted by Myself EKG shows normal: sinus rhythm - EKG Data EKG comments: Q wave in lead V3 11/18/16 07:29 - Impressions ITS Impressions Chest X-Ray 11/17/16 23:51 IMPRESSION: Slight increase in left base subsegmental atelectasis. Otherwise no acute abnormality. D/ / Raz Watts MD / Raz Watts MD Interpreting Provider: Raz Watts MD
[2016-11-18] MEDS ORDERED: *HR* Ticagrelor 90 MG TABLET PO SCH (09:00)
[2016-11-18] MEDS ORDERED: Aspirin 81 MG TAB.CHEW PO SCH (09:00)
[2016-11-18] MEDS ORDERED: Niacin (24 HR) 500 MG TAB.ER.24H PO SCH (09:00)
[2016-11-18] MEDS ORDERED: Cyanocobalamin (B-12) 1,000 MCG TABLET PO SCH (09:00)
[2016-11-18] MEDS ORDERED: Isosorbide MONOnitrate (24 HR) 60 MG TAB.ER.24H PO SCH (09:00)
[2016-11-18] MEDS ORDERED: Multivit/Ca/Min/Fe/FA 1 TAB TABLET PO SCH (09:00)
--- NOTE | 2016-11-18 11:11 | Cardiology Consult Note ---
Date of Encounter: 11/18/16 Time of Encounter: 10:55 Assessment and Plan (1) Chest pain Current Visit: Yes Status: Acute Chest pain is atypical. Reproducible on my exam. Pain relieved with anti- anxiety meds. Reports previous trauma to that area and he felt pain there before. Pain is not similar to recent MD. Troponin trending down after recent MD. EKG shows no acute changes. Discussed with Dr. Hernandez. We will treat pain with IV tordal. No further cardiac testing at this time. Qualifiers: Chest pain type: unspecified Qualified Code(s): R07.9 - Chest pain, unspecified (2) Elevated troponin Current Visit: Yes Status: Acute Mild troponin elevation in the setting of recent NSTEMI one week ago. Troponin trending down, 0.08, 0.06. Peaked at 0.31 11/12/16. Pt c/o atypical chest pain not like his previous MD. Now pain free. No further cardiac testing recommended at this time. (3) History of coronary artery disease Current Visit: No Status: Chronic Recent NSTEMI 11/13/15, peak troponin 0.31. Hx of CABG 12/2015. LHC showed severe 3 vessel CAD. Successful PTCA/MAYELA to mid RCA, prox RCA, 1st diag. 1/3 patent bypass grafts. ACEVES-mid LAD patent, SVG-PDA occluded, SVG-1st diag occluded. 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 Echo EF 50-55%, no wall motion abnormalities. DAPT (ASA and Brilinta) uninterrupted x 1 year. Pt has been compliant. Continue imdur, statin, and bb. (4) Hx of essential hypertension Current Visit: Yes Status: Chronic BP is stable. continue home medications Discussion w patient/family: The assessment and plan as outlined above was discussed with the patient and/or family members who expressed understanding and agreement. All questions were answered. Thank you for involving us in the care of your patient. Please call with any questions. History of Present Illness Consult date: 11/18/16 Requesting physician: Belle Zeng Consult reason: Chest pain, elevated troponin Chief complaint: Left sided chest pain last night History of present illness: Mr. Colon is a 66 year old male s/p recent NSTEMI with PCI 4/14/17, previous CABG x 3 12/2015, HTN, and HLD who presents with intermittent left sided chest pain last night. His pain felt like something grabbing his chest. The discomfort radiated down the underside of his left arm. Symptoms started at rest. He took three SL NTG without relief so he presented to the ER. He received a 4th NTG with minimal relief. Once given an anti-anxiety medication his discomfort went away. He was just seen in that cardiology office earlier that day and was feeling well. He was found to have elevated troponin at 0.06, 0.08. Troponin peaked at 0.31 last week. EKG shows no acute changes. He reports being compliant with his medications. Recent Testing: LHC showed severe 3 vessel CAD. Successful PTCA/MAYELA to mid RCA, prox RCA, 1st diag. 1/3 patent bypass grafts. ACEVES-mid LAD patent, SVG-PDA occluded, SVG-1st diag occluded. 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 Echo EF 50-55%, no wall motion abnormalities. Past Med Surg Social Fam HX - Past Medical History Medical history: coronary artery disease, hyperlipidemia, hypertension, myocardial infarction Psychiatric history: no psych history - Past Surgical History Surgical History: coronary bypass (CABG), herniorrhaphy, orthopedic, other - Social History Smoking Status: Never smoker Smokeless Tobacco Status: No Alcohol use: occasionally Drug use: none - Family History Brother Adopted: No Living Status: Still Living Hx Family Cardiac Disorders: Yes Hx Family Respiratory Disorders: No Hx Family Cancer: No Hx Family GI Disorders: No Hx Family Endocrine Disorder: No Hx Family Neuromuscular Disorders: No Hx Family Neurologic Disorders: No Hx Family HEENT Disorders: No Hx Family Autoimmune Disorders: No Medications and Allergies Aspirin 81 mg PO DAILY tab.chew 12/28/15 [Rx] Atorvastatin [Lipitor] 40 mg PO HS 01/21/16 [History] Melatonin 3 mg PO HS 11/11/16 [History] Metoprolol [Lopressor] 25 mg PO BID 11/11/16 [History] Niacin [Niacor] 500 mg PO DAILY 11/11/16 [History] Nitroglycerin [Nitrostat] 0.4 mg SL AD PRN 11/11/16 [History] Isosorbide MONOnitrate (24 HR) [Imdur] 60 mg PO DAILY #60 tab.er.24h 11/13/16 [ Rx] Ticagrelor [Brilinta] 90 mg PO BID #60 tablet 11/13/16 [Rx] Ascorbate Calcium [Vitamin C] 500 mg PO DAILY 11/18/16 [History] Allergies No Known Allergies Allergy (Verified 11/17/16 23:34) All Systems Review: A 10-system review of systems was performed and is negative for pertinent findings except as documented above in the HPI. Physical Examination Vital Signs, Last 4 Hours Temp Pulse Resp BP Pulse Ox 11/18/16 08:15 97.7 F 86 14 163/93 96 General: Conversant, No Apparent Distress HEENT: Atraumatic, Normocephaly, Mucus Membranes Moist Neck: No JVD, Normal carotid pulses Cardiac: Reg Rate and Rhythm, Normal S1 and S2, No Murmur Lungs: Normal Breath Sounds, No Wheeze, Rales, Rhonchi Neuro: Alert and responsive, No focal deficits noted Abdomen: Soft, Non-Tender Skin: No rashes noted on visualized skin Musculoskeletal: No Chest Wall Tenderness, Other (left sided chest pain somewhat reproducible. ) Extremities: No Clubbing, No Cyanosis, No Edema, Normal Pulses Results 11/18/16 00:11 11/18/16 00:11 Lab Results 11/18/16 06:35 Troponin I 0.06 H* - EKG Interpretation EKG results cardiology: personally reviewed (with no acute changes.) Consult Discharge Plan - Plan Referrals: NO,PCP [Primary Care Provider] -
[2016-11-18] MEDS ORDERED: Ketorolac 15 MG/ML VIAL IVP ONE (11:12)
--- NOTE | 2016-11-18 13:37 | Electrocardiograph Report ---
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
[2016-11-18 14:52] VITALS: BP 105/71
--- NOTE | 2016-11-18 15:18 | Discharge Summary ---
<Batsheva Atkinson - Last Filed: 11/18/16 15:11> Date of Encounter: 11/18/16 Time of Encounter: 10:30 - Discharge Diagnosis (1) Chest pain Priority: Primary Status: Acute Qualifiers: Chest pain type: unspecified Qualified Code(s): R07.9 - Chest pain, unspecified (2) Elevated troponin Priority: Primary Status: Acute (3) History of coronary artery disease Priority: Secondary Status: Chronic (4) Hx of essential hypertension Priority: Secondary Status: Chronic (5) Difficulty sleeping Priority: Secondary Status: Acute - Discharge Medications Prescriptions: Trazodone HCl 50 mg PO HS #30 tablet Home Medications: Aspirin 81 mg PO DAILY tab.chew 12/28/15 [Rx] Atorvastatin [Lipitor] 40 mg PO HS 01/21/16 [History] Melatonin 3 mg PO HS 11/11/16 [History] Metoprolol [Lopressor] 25 mg PO BID 11/11/16 [History] Niacin [Niacor] 500 mg PO DAILY 11/11/16 [History] Nitroglycerin [Nitrostat] 0.4 mg SL AD PRN 11/11/16 [History] Isosorbide MONOnitrate (24 HR) [Imdur] 60 mg PO DAILY #60 tab.er.24h 11/13/16 [ Rx] Ticagrelor [Brilinta] 90 mg PO BID #60 tablet 11/13/16 [Rx] Ascorbate Calcium [Vitamin C] 500 mg PO DAILY 11/18/16 [History] Trazodone HCl 50 mg PO HS #30 tablet 11/18/16 [Rx] Allergies/Adverse Reactions: Allergies No Known Allergies Allergy (Verified 11/17/16 23:34) Procedures/tests Complete & Pending: Cardiac Enzymes 11/18/16 11/18/16 11/18/16 Range/Units 00:11 00:11 06:35 AST 21 (5-34) Units/L Troponin I 0.08 H* 0.06 H* (0-0.03) ng/mL 11/18/16 Range/Units 12:23 AST (5-34) Units/L Troponin I 0.05 H* (0-0.03) ng/mL Date of admission: 11/18/16 03:14 Primary care physician: PCP NO Consults: 11/18/16 06:15 Consult to Cardiology [CONS] Routine Comment: Consulting Provider: [facility] Reason for Consult: Chest pain; elevated toponin Call Completed: No Discharging clinician: Renea Reyes Anticipated date of discharge: 11/18/16 - Patient Status Disposition: Home, Self-Care Condition: Good Functional capacity at discharge: independent ambulation Overall status at discharge: patient is back to baseline - Discharge Instructions Instructions: Trazodone (By mouth), Chest Pain (DC) Follow Up With: NO,PCP [Primary Care Provider] - (unable to contact PCP in [place]. Pt to follow up in 1-2 weeks. ) - Diet and Activity Activity: increase activity as tolerated Diet: low salt diet, other (cardiac diet) Hospital course: Mr. Colon is a 66 year old male who presented to [facility] ER on 11/17/16 with left chest pain isolated to anterior axillary line at level of third to fifth rib. 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 His pain felt like something grabbing his chest. The discomfort radiated down the underside of his left arm. Symptoms started at rest. He took three SL NTG without relief so he presented to the ER. He received a 4th NTG with minimal relief. Once given an anti-anxiety medication his discomfort went away. Upon presentation to hospital, patient was found to have elevated troponin at 0.06, 0.08. However, troponin has declined as it was 0.20 last week on discharge after NSTEMI. EKG showed no acute changes. Recent Testing: [facility] showed severe 3 vessel CAD. Successful PTCA/MAYELA to mid RCA, prox RCA, 1st diag. 1/3 patent bypass grafts. ACEVES-mid LAD patent, SVG-PDA occluded, SVG-1st diag occluded. [employer]IC[employer] mid Cx with right to left collaterals. Echo EF 50-55%, no wall motion abnormalities. On physical exam, patient had increased hypertonicity of pectoralis minor muscle with dysfunction of left 3rd rib. Patient had TTP to left 3rd rib on exam. Patient's rib was treated with osteopathic manipulation. Patient states that his chest pain has resolved at this time. He has been seen and cleared by cardiology. Patient is stable for discharge. He is free of chest pain at this time. He is instructed to return to the hospital should chest pain return. During his hospital stay, patient had difficulty sleeping. He will be discharged to home with Trazadone for sleep. He was warned for side effects of trazadone including priapism. He will require follow up with PCP in 7 days. - Time Spent with Patient Total time spent providing and/or coordinating discharge services: - Constitutional Vitals: Temp Pulse Resp BP Pulse Ox 97.9 F 73 17 105/71 93 11/18/16 14:51 11/18/16 14:51 11/18/16 14:51 11/18/16 14:51 11/18/16 14:51 General appearance: Present: A&O X 3, answers questions appropriately - Head Head exam: Present: atraumatic, normocephalic - Eye Eye exam: Present: PERRL, conjuntiva pink, sclera anicteric - Neck Neck exam general surgery: Present: supple, trachea midline. Absent: lymphadenopathy Additional comments: No carotid bruit - Respiratory Respiratory exam: Present: chest wall tenderness (increased hypertonicity of pectoralis minor muscle with dysfunction of left 3rd rib. Patient had TTP to left 3rd rib on exam.), CTAB. Absent: accessory muscle use, rales, rhonchi, wheezes - Cardiovascular Cardiovascular exam: Present: RRR, +S1, +S2. Absent: diastolic murmur, gallop, rubs, systolic murmur - GI/Abdominal GI/Abdominal exam: Present: normal bowel sounds, soft, no peritoneal signs. Absent: distended, tenderness - Extremities Exam Extremities exam: Present: warm, radial pulses palpable and symetrical. Absent : calf tenderness, cyanotic, pedal edema - Neurological Exam Neurological exam: Present: CN II-XII intact, oriented X3, no focal deficits. Absent: facial droop, speech deficit - Skin Skin exam: Present: dry, intact <Renea Reyes E - Last Filed: 11/18/16 18:22> Date of Encounter: 11/18/16 Date of admission: 11/18/16 03:14 Primary care physician: PCP NO Consults: 11/18/16 06:15 Consult to Cardiology [CONS] Routine Comment: Consulting Provider: [facility] [place] Reason for Consult: Chest pain; elevated toponin Call Completed: No Hospital course: Mr. Colon is a 66 year old male - Time Spent with Patient Total time spent providing and/or coordinating discharge services: - Constitutional Vitals: Temp Pulse Resp BP Pulse Ox 97.9 F 73 17 105/71 93 11/18/16 14:51 11/18/16 14:51 11/18/16 14:51 11/18/16 14:51 11/18/16 14:51 - Attending Attestation I examined this patient and reviewed laboratory, imaging and all diagnostic data. My medical decision-making was reviewed with Dr Atkinson - Resident Physician. I agree with the documented findings, disposition and treatment plan as described above
[2016-11-18] MEDS ORDERED: Melatonin 3 MG TABLET PO SCH (21:00)
== END 2016-11-18 17:24 | disposition home or self-care (01) ==
LOC: EMEROO 23:31 → 3BNU 23:31 → SUATTDRO 11-18 03:14 → 3BNU 11-18 03:50
PROVIDERS: ADMIT Internal Medicine; ATTEND Internal Medicine

== ENCOUNTER 2019-05-09 03:06 | Observation (INO) ==
[2019-05-09] MEDS ORDERED: Naloxone 0.4 MG/ML INJ IVP PRN (05:27)
[2019-05-09] MEDS ORDERED: Nitroglycerin 0.4 MG TAB.SUBL SL PRN (06:22)
[2019-05-09 07:59] LABS: Hematocrit 40.9 % (37.5-50.1); Hemoglobin 13.7 g/dL (12.9-16.9); Mean Corpuscular HGB Conc 33.5 g/dL (31.6-35.5); Mean Corpuscular Hemoglobin 30.2 pg (28.0-33.3); Mean Corpuscular Volume 90.3 fL (83.0-100.0); Mean Platelet Volume 10.6 fL (9.4-12.4); Platelet Count 172 K/mcL (140-400); Red Blood Count 4.53 M/mcL (4.19-5.50); Red Cell Distribution Width 12.9 % (11.5-14.5)
[2019-05-09 08:09] LABS: BUN/Creatinine Ratio 20 (6-26); Blood Urea Nitrogen 21 mg/dL (8-23); Calcium 8.5 mg/dL (8.6-10.3); Carbon Dioxide 25 mEq/L (23-29); Chloride 106 mEq/L (98-107); Glucose 100 mg/dL (70-105); Osmolality,Calculated 283 (280-300); Potassium 4.3 mEq/L (3.5-5.1); Sodium 135 mEq/L (136-145); Troponin I < 0.03 ng/mL (< 0.04); eGFR For African Americans > 60 (> 60); eGFR For Non-African Americans > 60 (> 60)
[2019-05-09] MEDS ORDERED: Aspirin 81 MG TAB.CHEW PO SCH (09:00)
[2019-05-09] MEDS ORDERED: *HR* Ticagrelor 90 MG TABLET PO SCH (09:00)
[2019-05-09] MEDS ORDERED: Regadenoson 0.4 MG/5 ML SYRINGE IVP ONE (09:01)
[2019-05-09] MEDS ORDERED: clonazePAM 0.5 MG TABLET PO PRN (12:37)
[2019-05-09] MEDS ORDERED: Gabapentin 300 MG CAPSULE PO SCH (15:00)
[2019-05-09 15:18] VITALS: BP 129/74
[2019-05-09] MEDS ORDERED: Melatonin 3 MG TABLET PO SCH ×2 (21:00)
[2019-05-10] MEDS ORDERED: NON-FORMULARY MEDICATION 1 EACH EACH (Omega-3/Dha/Epa/Fish Oil [Fish Oil 1,000 Mg Softgel] PO SCH (09:00)
[2019-05-10] MEDS ORDERED: Multivit/Ca/Min/Fe/FA 1 TAB TABLET PO SCH (09:00)
[2019-05-10] MEDS ORDERED: Cholecalciferol (D-3) 1,000 UNIT (25MCG) TABLET PO SCH (09:00)
== END 2019-05-09 16:18 | disposition home or self-care (01) ==
LOC: 3BNU
PROVIDERS: ADMIT Internal Medicine; ATTEND Internal Medicine